=== PATIENT | female | born 1980 | race Caucasian/White ===

== ENCOUNTER 2016-10-10 19:06 | Emergency (ER) | payer MEDICAID ==
[~2016-10-10] VITALS: Ht 152.4 cm; Wt 85.0 kg
[~2016-10-10 19:06] MED LIST: APRESOLINE25 MG/TAB PO; APRISO0.375 GM PO; ATIVAN0.5 MG PO; BACTRIM DS1 TAB PO; BUDEPRION150 MG PO; BUDESONIDE1 MG/2 ML; BUPROPION150 MG PO; BUSPAR5 MG PO; CEPHALEXIN500 M1 PO; CIPROFLOXACN500 MG PO; CITALOPRAM20 MG PO; DOXYCYCL HYC100 MG PO; FLUCONAZOLE150 MG PO; HUMIRA PED40 MG/0.8 IJ; IBUPROFEN600 MG PO; LOMOTIL2.5 MG PO; LORTAB 10-325 M1 TAB PO; LORTAB 5/3255 MG PO; LORTAB 7.57.5 MG PO; LORTAB5 PO; METRONIDAZOL500 MG PO; NAPROSYN500 MG PO; NO HOME MEDS; ORTHO NOVUM PO; PENICILLN VK500 M1 OR; PENTASA250 MG PO; PNV PO; PREDNISONE10 MG PO; REMICADE INJ100 MG IV; ROBITUSSIN AC10 ML OR; SYNTHROID100 MCG PO; TORADOL PO; UCERIS9 MG PO; ULTRAM50 M1 PO; ZOFRAN ODT4 MG PO; ZOLOFT25 MG; [UNRECOGNIZED DRUG - OTHER]
[2016-10-10 20:00] LABS: HEMATOCRIT 34.8 % (37.0-47.0); HEMOGLOBIN 11.2 g/dl (12.0-16.0); IMMATURE GRANULOCYTES 0.4 % (0.0-1.0); MEAN CELL VOLUME 76.8 fL CALC (80.0-100.0); MEAN CORPUSCULAR HGB 24.7 pG CALC (26.0-32.0); MEAN CORPUSCULAR HGB CONC 32.2 g/L CALC (32.0-36.0); NEUT# 8.39 thou/uL (2.00-7.15); RED BLOOD COUNT 4.53 mill/uL (4.20-5.60); RED CELL DISTRI WIDTH 15.9 % (11.5-15.5); URINE BILIRUBIN - DIPSTICK NEGATIVE (NEGATIVE); URINE BLOOD DIPSTICK MODERATE (NEGATIVE); URINE CLARITY CLOUDY; URINE COLOR YELLOW; URINE GLUCOSE - DIPSTICK NEGATIVE (NEGATIVE); URINE KETONE NEGATIVE (NEGATIVE); URINE LEUK ESTERASE NEGATIVE (NEGATIVE); URINE NITRITE - DIPSTICK NEGATIVE (Negative); URINE PROTEIN - DIPSTICK 30 mg/dL (NEG-TRACE); URINE SPECIFIC GRAVITY >=1.030; URINE UROBILINOGEN - DIPSTICK 0.2 E.U./dL (0.2)
[2016-10-10 20:09] LABS: URINE BACTERIA FEW hpf; URINE CALCIUM OXALATE CRYSTALS MANY lpf; URINE SQUAMOUS EPITHELIAL CELL MODERATE EPI/hpf (0-FEW); URINE WBC 0-2 WBC/hpf (0-5)
[2016-10-10 20:19] LABS: BARBITURATES NEGATIVE (NEGATIVE); COCAINE NEGATIVE (NEGATIVE); METHADONE NEGATIVE (NEGATIVE); OXCYCODONE NEGATIVE (NEGATIVE); TETRAHYDROCANNABIONOL NEGATIVE (NEGATIVE); TRICYLIC ANTIDEPRESSANTS NEGATIVE (NEGATIVE)
[2016-10-10 20:28] LABS: ALBUMIN 3.8 g/dL (3.2-5.0); ALKALINE PHOSPHATASE 98 u/l (38-126); ANION GAP 15 (6-22 (CALC)); BILIRUBIN, TOTAL 0.4 mg/dL (0.0-1.4); BUN 8 mg/dL (7-17); BUN/CREATININE RATIO 11 (12-20 (CALC)); CALCIUM 8.9 mg/dL (8.4-10.2); CARBON DIOXIDE 26 mmol/l (22-30); CHLORIDE 103 mmol/l (95-108); CREATININE 0.7 mg/dL (0.5-1.0); GFR > 60 ML/MIN (>=60 (CALC)); GFR FOR AFR.AMER. > 60 ML/MIN (>=60 (CALC)); GLUCOSE 100 mg/dL (65-105); POTASSIUM 2.7 mmol/l (3.5-5.1); SGOT/AST 25 u/l (14-36); SGPT/ALT 23 u/l (9-52); SODIUM 140 mmol/l (137-146); TOTAL PROTEIN 8.3 g/dL (6.3-8.2)
[2016-10-10 20:38] LABS: MYOGLOBIN 29 ng/mL (0 - 62)
[2016-10-10] MEDS ORDERED: POTASSIUM CHLO20 ME1 PO (23:22)
[2016-10-10 23:41] VITALS: BP 110/60
== END 2016-10-10 23:37 | disposition home or self-care (01) | DRG 309 ==
LOC: ED 19:06
PROVIDERS: Emergency Medicine
DX: R00.2 Palpitations (principal); K50.90 Crohn's disease, unspecified, without complications; E87.6 Hypokalemia; R19.7 Diarrhea, unspecified; F17.210 Nicotine dependence, cigarettes, uncomplicated

== ENCOUNTER 2016-10-29 17:37 | Observation (INO) | payer OTHER ==
[~2016-10-29] VITALS: Ht 152.4 cm; Wt 83.0 kg
[~2016-10-29 17:37] MED LIST changes: +POTASSIUM CHLO20 ME1 PO
--- NOTE | 2016-10-29 18:15 | NUR ---
PATIENT RESTING AWAITING ANESTHESIA FOR POSSIIBLE CONSCINOUS SEDATION PAIN 4 ON 0-10 SCALE
[2016-10-29 18:21] LABS: HEMATOCRIT 37.2 % (37.0-47.0); HEMOGLOBIN 11.9 g/dl (12.0-16.0); IMMATURE GRANULOCYTES 0.4 % (0.0-1.0); MEAN CELL VOLUME 78.6 fL CALC (80.0-100.0); MEAN CORPUSCULAR HGB 25.2 pG CALC (26.0-32.0); NEUT# 8.18 thou/uL (2.00-7.15); RED BLOOD COUNT 4.73 mill/uL (4.20-5.60); RED CELL DISTRI WIDTH 16.4 % (11.5-15.5)
[2016-10-29 18:37] LABS: ALKALINE PHOSPHATASE 84 u/l (38-126); ANION GAP 15 (6-22 (CALC)); BILIRUBIN, TOTAL 0.5 mg/dL (0.0-1.4); BUN 10 mg/dL (7-17); BUN/CREATININE RATIO 14 (12-20 (CALC)); CALCIUM 9.6 mg/dL (8.4-10.2); CARBON DIOXIDE 22 mmol/l (22-30); CHLORIDE 105 mmol/l (95-108); CREATININE 0.7 mg/dL (0.5-1.0); GFR > 60 ML/MIN (>=60 (CALC)); GFR FOR AFR.AMER. > 60 ML/MIN (>=60 (CALC)); GLUCOSE 95 mg/dL (65-105); POTASSIUM 3.4 mmol/l (3.5-5.1); SGOT/AST 17 u/l (14-36); SGPT/ALT 23 u/l (9-52); SODIUM 139 mmol/l (137-146); TOTAL PROTEIN 8.4 g/dL (6.3-8.2)
--- NOTE | 2016-10-29 19:15 | NUR ---
PT. AGREED TO HAVE MD OPEN ACSCESS SO IT MAY DRAIN BETTER.
--- NOTE | 2016-10-29 19:58 | NUR ---
IN ROOM FOR INCISION AND DRAINAGE OF RIGHT BUTTOCK ABSCESS. PT. TOLERATED WELL. CULTURE OBTAINED, PACKING APPLIED.
--- NOTE | 2016-10-29 20:33 | NUR ---
Admission Note Report Given to: ANNETTE CASTRO Transported by: Wheelchair X Stretcher Transported with: X Nurse Transporter X Patent IV O2 Contact Worker
--- NOTE | 2016-10-29 20:35 | NUR ---
PT. TAKEN TO DE VIA STRETCHER.
[2016-10-29 20:40] VITALS: BP 132/72
--- NOTE | 2016-10-29 20:50 | NUR ---
PATIENT ARRIVED TO FLOOR ACCOMPANIED BY NURSE. PATIENT SETTLED TO BED AND ORIENTED TO ROOM AND CALL SYSTEM; DENIES PAIN OR DISCOMFORT AT THIS TIME. SALINE LOCK #18 GUAGE NOTED IN LAC AND FLUSHES WELL.
--- NOTE | 2016-10-30 | NUR ---
PATIENT RESTING IN BED WITH EYES CLOSED. PATIENT AWOKE SPONTANEOUSLY. DENIES PAIN. PATIENT IS IN NO APPARENT DISTRESS, IV FLUIDS OF NS INFUSING AT 125CC/H VIA PUMP WITHOUT DIFFICULTY.
[2016-10-30 03:50] VITALS: BP 109/69
--- NOTE | 2016-10-30 04:00 | NUR ---
PATIENT RESTING QUIETLY IN BED, NO ACUTE CHANGES NOTED IN PATIENT'S CONDITION.
--- NOTE | 2016-10-30 07:05 | NUR ---
BEDSIDE REPORT RECEIVED FROM GLORIA BRYATN. PT LYING ON LEFT SIDE IN BED. DENIES PAIN. REPORTING OF CONCERNS ENCOURAGED. PLAN OF CARE DISCUSSED. CALL LIGHT REVIEWED AND IN REACH. PT STATES UNDERSTANDING.
--- NOTE | 2016-10-30 07:55 | NUR ---
Vancomycin dosing Age: 36 years Weight: 83 kg Height: 152.4 cm Gender: Female SCR: 0.7 mg/dl Dosing weight: 60.5 kg IBW: 45.50 kg CRCL (ml/min): 81.3 Matthew (hr-1): 0.072 Half-life (hrs): 9.63 Vd (liters): 58.10 (factor: 0.7 L/kg) Vancomycin 1250 mg q12 hrs to produce a predicted peak of 34.6 mcg/ml and a predicted trough of 16.8 mcg/ml based on (Population-based pharmacokinetic analysis). Vancomycin trough to be taken on 10/31/16 at 2030, 30 minutes prior to dose.
[2016-10-30 08:00] VITALS: BP 100/51
--- NOTE | 2016-10-30 12:20 | NUR ---
DR. PARKS IN TO SEE PT. DISCHARGE DISCUSSED. PT STATES UNDERSTANDING.
--- NOTE | 2016-10-30 12:21 | NUR ---
Discharge instructions given. Patient verbalizes understanding of same. Discharged in stable condition via Ambulatory to Home with *Other. All belongings sent with pt.
--- NOTE | 2016-11-01 08:23 | NUR ---
ED CULTURE PHARMACY MEDICATION FOLLOW-UP Patient was seen in ED on 10/29/16 Cultures were reviewed from: Wound Patient was discharged with Rx for:N/A C&S report came back with Growth PLAN: Recommended: No Change Comment: RECURRENT PERINEAL ABCESS DRAINED IN ER. PT UNDER CARE OF DR PARKS.
== END 2016-10-30 12:21 | disposition home or self-care (01) | DRG 394 ==
LOC: ENPENDDIS → ED 17:37 → ED-I 19:08 → ED 19:58 → MS2 19:59
PROVIDERS: Emergency Medicine; ADMIT Surgery; ATTEND Surgery
PROC: 0H98XZZ Drainage of Buttock Skin, External Approach (ICD-10-PCS; principal; 2016-10-29)
DX: K61.0 Anal abscess (principal); K50.90 Crohn's disease, unspecified, without complications; F31.9 Bipolar disorder, unspecified; F41.9 Anxiety disorder, unspecified; F17.210 Nicotine dependence, cigarettes, uncomplicated
CPT/HCPCS: G0378; J3370

== ENCOUNTER 2016-12-13 21:50 | Emergency (ER) | payer OTHER ==
[~2016-12-13] VITALS: Ht 152.4 cm; Wt 86.3 kg
[2016-12-13] MEDS ORDERED: AMOXICILLIN500 MG PO (22:10)
[2016-12-13] MEDS ORDERED: LORTAB 10-325 M1 TAB PO (22:10)
[2016-12-13 22:30] VITALS: BP 138/73
== END 2016-12-13 22:30 | disposition home or self-care (01) | DRG 159 ==
LOC: ED 21:50
DX: K04.7 Periapical abscess without sinus (principal); F17.210 Nicotine dependence, cigarettes, uncomplicated; K08.89 Other specified disorders of teeth and supporting structures; R51 Headache

== ENCOUNTER 2017-01-11 13:11 | Emergency (ER) | payer OTHER ==
[~2017-01-11] VITALS: Ht 152.4 cm; Wt 75.0 kg
[~2017-01-11 13:11] MED LIST changes: +AMOXICILLIN500 MG PO
[2017-01-11] MEDS ORDERED: TRAMADOL HYDROC50 MG PO (13:56)
[2017-01-11] MEDS ORDERED: KEFLEX500 MG PO (13:56)
[2017-01-11 14:05] VITALS: BP 120/76
== END 2017-01-11 14:05 | disposition home or self-care (01) | DRG 605 ==
LOC: ED 13:11
PROC: 0HQFXZZ Repair Right Hand Skin, External Approach (ICD-10-PCS; principal; 2017-01-11)
DX: S61.411A Laceration without foreign body of right hand, initial encounter (principal); K50.90 Crohn's disease, unspecified, without complications; F41.9 Anxiety disorder, unspecified; F31.9 Bipolar disorder, unspecified; F17.210 Nicotine dependence, cigarettes, uncomplicated; W26.8XXA Contact with other sharp object(s), not elsewhere classified, initial encounter; Y93.89 Activity, other specified; Y92.009 Unspecified place in unspecified non-institutional (private) residence as the place of occurrence of the external cause

== ENCOUNTER 2017-01-18 10:40 | Emergency (ER) | payer SELFPAY ==
[~2017-01-18] VITALS: Ht 152.4 cm; Wt 85.0 kg
[~2017-01-18 10:40] MED LIST changes: +KEFLEX500 MG PO; -REMICADE INJ100 MG IV; +TRAMADOL HYDROC50 MG PO
[2017-01-18] MEDS ORDERED: REMICADE INJ100 MG IV (11:19)
[2017-01-18 11:40] VITALS: BP 121/74
== END 2017-01-18 11:40 | disposition home or self-care (01) | DRG 949 ==
LOC: ED 10:40
DX: S61.401D Unspecified open wound of right hand, subsequent encounter (principal); K50.90 Crohn's disease, unspecified, without complications; F17.210 Nicotine dependence, cigarettes, uncomplicated; X58.XXXD Exposure to other specified factors, subsequent encounter

== ENCOUNTER 2017-01-22 07:05 | Emergency (ER) | payer SELFPAY ==
[~2017-01-22] VITALS: Ht 152.4 cm; Wt 90.0 kg
[~2017-01-22 07:05] MED LIST changes: +REMICADE INJ100 MG IV
[2017-01-22 07:34] VITALS: BP 130/89
== END 2017-01-22 07:35 | disposition home or self-care (01) | DRG 921 ==
LOC: ED 07:05
DX: T81.33XA Disruption of traumatic injury wound repair, initial encounter (principal); F17.210 Nicotine dependence, cigarettes, uncomplicated

== ENCOUNTER 2017-01-27 19:15 | Emergency (ER) | payer SELFPAY ==
[~2017-01-27] VITALS: Ht 152.4 cm; Wt 86.3 kg
[2017-01-27 20:19] LABS: HEMOGLOBIN 11.1 g/dl (12.0-16.0); IMMATURE GRANULOCYTES 0.4 % (0.0-1.0); MEAN CELL VOLUME 83.7 fL CALC (80.0-100.0); MEAN CORPUSCULAR HGB 25.8 pG CALC (26.0-32.0); MEAN CORPUSCULAR HGB CONC 30.8 g/L CALC (32.0-36.0); NEUT# 5.57 thou/uL (2.00-7.15); RED BLOOD COUNT 4.3 mill/uL (4.20-5.60); RED CELL DISTRI WIDTH 18.9 % (11.5-15.5)
[2017-01-27 20:30] LABS: ALBUMIN 3.4 g/dL (3.2-5.0); ALKALINE PHOSPHATASE 55 u/l (38-126); ANION GAP 11 (6-22 (CALC)); BILIRUBIN, TOTAL 0.9 mg/dL (0.0-1.4); BUN 9 mg/dL (7-17); BUN/CREATININE RATIO 13 (12-20 (CALC)); CALCIUM 8.8 mg/dL (8.4-10.2); CARBON DIOXIDE 23 mmol/l (22-30); CHLORIDE 110 mmol/l (95-108); CREATININE 0.7 mg/dL (0.5-1.0); GFR > 60 ML/MIN (>=60 (CALC)); GFR FOR AFR.AMER. > 60 ML/MIN (>=60 (CALC)); GLUCOSE 91 mg/dL (65-105); POTASSIUM 4.2 mmol/l (3.5-5.1); SGOT/AST 20 u/l (14-36); SGPT/ALT 27 u/l (9-52); SODIUM 139 mmol/l (137-146); TOTAL PROTEIN 6.6 g/dL (6.3-8.2)
[2017-01-27 22:19] LABS: C. DIFFICILE TOXIN A&B NEGATIVE (NEGATIVE)
[2017-01-27 23:10] VITALS: BP 144/71
== END 2017-01-27 23:15 | disposition home or self-care (01) | DRG 386 ==
LOC: ED 19:15
PROVIDERS: Emergency Medicine
DX: K51.90 Ulcerative colitis, unspecified, without complications (principal); K62.5 Hemorrhage of anus and rectum; R50.9 Fever, unspecified; R10.32 Left lower quadrant pain; R11.2 Nausea with vomiting, unspecified
CPT/HCPCS: Q9967

== ENCOUNTER 2017-06-02 18:28 | Emergency (ER) | payer OTHER ==
[~2017-06-02] VITALS: Ht 152.4 cm; Wt 80.0 kg
[2017-06-02 19:19] LABS: IMMATURE GRANULOCYTES 0.3 % (0.0-1.0); MEAN CELL VOLUME 83.2 fL CALC (80.0-100.0); MEAN CORPUSCULAR HGB 27.1 pG CALC (26.0-32.0); MEAN CORPUSCULAR HGB CONC 32.6 g/L CALC (32.0-36.0); NEUT# 7.29 thou/uL (2.00-7.15); RED BLOOD COUNT 5.17 mill/uL (4.20-5.60); RED CELL DISTRI WIDTH 15.1 % (11.5-15.5)
[2017-06-02 19:32] LABS: ALKALINE PHOSPHATASE 101 u/l (38-126); ANION GAP 15 (6-22 (CALC)); BILIRUBIN, TOTAL 1.1 mg/dL (0.0-1.4); BUN 8 mg/dL (7-17); BUN/CREATININE RATIO 10 (12-20 (CALC)); CALCIUM 9.3 mg/dL (8.4-10.2); CARBON DIOXIDE 21 mmol/l (22-30); CHLORIDE 106 mmol/l (95-108); CREATININE 0.8 mg/dL (0.5-1.0); GFR > 60 ML/MIN (>=60 (CALC)); GFR FOR AFR.AMER. > 60 ML/MIN (>=60 (CALC)); GLUCOSE 96 mg/dL (65-105); LIPASE 20 u/l (23-300); POTASSIUM 3.4 mmol/l (3.5-5.1); SGOT/AST 21 u/l (14-36); SGPT/ALT 20 u/l (9-52); SODIUM 139 mmol/l (137-146); TOTAL PROTEIN 8.7 g/dL (6.3-8.2)
[2017-06-02] MEDS ORDERED: MEDDOSEPAK PO (20:14)
[2017-06-02 20:16] VITALS: BP 135/70
== END 2017-06-02 20:32 | disposition home or self-care (01) | DRG 392 ==
LOC: ED 18:28
PROVIDERS: Emergency Medicine
DX: R10.11 Right upper quadrant pain (principal); F17.210 Nicotine dependence, cigarettes, uncomplicated; R11.2 Nausea with vomiting, unspecified; R19.7 Diarrhea, unspecified

== ENCOUNTER 2017-10-20 18:22 | Inpatient (IN) | payer OTHER ==
[~2017-10-20] VITALS: Ht 152.4 cm; Wt 72.2 kg
[~2017-10-20 18:22] MED LIST changes: +MEDDOSEPAK PO
--- NOTE | 2017-10-20 18:30 | NUR ---
PT AMBULATED TO ER ROOM 8 WITH STEADY GAIT. TO BATHROOM FOR UA SAMPLE. CHANGED INTO GOWN.
[2017-10-20 19:26] LABS: URINE BILIRUBIN - DIPSTICK NEGATIVE (NEGATIVE); URINE BLOOD DIPSTICK NEGATIVE (NEGATIVE); URINE COLOR YELLOW; URINE GLUCOSE - DIPSTICK NEGATIVE (NEGATIVE); URINE KETONE NEGATIVE (NEGATIVE); URINE LEUK ESTERASE NEGATIVE (NEGATIVE); URINE NITRITE - DIPSTICK NEGATIVE (Negative); URINE PROTEIN - DIPSTICK NEGATIVE (NEG-TRACE); URINE SPECIFIC GRAVITY 1.015; URINE UROBILINOGEN - DIPSTICK 0.2 E.U./dL (0.2)
[2017-10-20 19:28] LABS: HEMATOCRIT 38.6 % (37.0-47.0); HEMOGLOBIN 13.1 g/dl (12.0-16.0); IMMATURE GRANULOCYTES 0.5 % (0.0-1.0); MEAN CELL VOLUME 87.3 fL CALC (80.0-100.0); MEAN CORPUSCULAR HGB 29.6 pG CALC (26.0-32.0); MEAN CORPUSCULAR HGB CONC 33.9 g/L CALC (32.0-36.0); NEUT# 12.06 thou/uL (2.00-7.15); RED BLOOD COUNT 4.42 mill/uL (4.20-5.60); RED CELL DISTRI WIDTH 14.6 % (11.5-15.5)
[2017-10-20 19:32] LABS: URINE CLARITY CLEAR
[2017-10-20 19:39] LABS: INFLUENZA A NONE DETECTED (NONE DETECT); INFLUENZA B NONE DETECTED (NONE DETECT)
[2017-10-20 19:39] LABS: ALKALINE PHOSPHATASE 135 u/l (38-126); ANION GAP 12 (6-22 (CALC)); BILIRUBIN, TOTAL 0.6 mg/dL (0.0-1.4); BUN 6 mg/dL (7-17); BUN/CREATININE RATIO 6 (12-20 (CALC)); CARBON DIOXIDE 25 mmol/l (22-30); CHLORIDE 101 mmol/l (95-108); GFR > 60 ML/MIN (>=60 (CALC)); GFR FOR AFR.AMER. > 60 ML/MIN (>=60 (CALC)); POTASSIUM 2.8 mmol/l (3.5-5.1); SGOT/AST 18 u/l (14-36); SGPT/ALT 32 u/l (9-52); SODIUM 135 mmol/l (137-146)
[2017-10-20 19:40] LABS: ALBUMIN 2.1 g/dL (3.2-5.0); TOTAL PROTEIN 5.8 g/dL (6.3-8.2)
--- NOTE | 2017-10-20 21:13 | NUR ---
RESTING QUIETLY AWAITING DISPOSITION.
--- NOTE | 2017-10-20 21:40 | NUR ---
Admission Note Report Given to: GLORIA MERIDA Transported by: Wheelchair X Stretcher Transported with: X Nurse Transporter X Patent IV O2 X Low Vision Therapist
--- NOTE | 2017-10-20 21:55 | NUR ---
PT TO FLOOR VIA STRETCHER ACOMPANIED BY ER STAFF. PT AMBULATED FROM STRETCHER TO BED WITHOUT DIFFICULTY. PT IS ALERT AND ORIENTED X3. PERRLA. RESP ARE EVEN AND UNLABORED. NO DISTRESS NOTED. LUNGS ARE CLEAR. HR REGULAR. PULSES PALPABLE THROUGHOUT. NO EDEMA NOTED. BS ACTIVE. #20 LAC WITH NS W/ 40K INFUSING AT 125CC/HR. NO REDNESS OR EDEMA NOTED. CALL LIGHT IN REACH. WILL CONTINUE TO MONITOR.
--- NOTE | 2017-10-20 22:00 | NUR ---
PT COMPLAINS OF 8/[address] DELAROSA NOTIFIED. ORDERS RECEIVED.
--- NOTE | 2017-10-20 22:30 | NUR ---
PT WITH COMPLAINTS OF CHILLS. PT HAD A TEMP IN ER OF 101.6. TEMP RECHECKED 100.0 ORDER OBTAINED FOR TYLENOL. WILL MEDICATE PRN
--- NOTE | 2017-10-20 23:51 | NUR ---
PT RESTING IN BED. RESP ARE EVEN AND UNLABORED. CALL LIGHT IN REACH WILL CONTINUE TO MONITOR
--- NOTE | 2017-10-21 04:11 | NUR ---
PT RESTING IN BED. RESP ARE EVEN AND UNLABORED. NO DISTRESS NOTED. CALL LIGHT IN REACH. WILL CONTINUE TO MONITOR
[2017-10-21 04:29] VITALS: BP 82/51
[2017-10-21 06:13] LABS: ANION GAP 10 (6-22 (CALC)); BUN 6 mg/dL (7-17); BUN/CREATININE RATIO 6 (12-20 (CALC)); CARBON DIOXIDE 22 mmol/l (22-30); CHLORIDE 105 mmol/l (95-108); CREATININE 0.9 mg/dL (0.5-1.0); GFR > 60 ML/MIN (>=60 (CALC)); GFR FOR AFR.AMER. > 60 ML/MIN (>=60 (CALC)); MAGNESIUM 1.6 mg/dL (1.6-2.3); POTASSIUM 3.1 mmol/l (3.5-5.1); SODIUM 135 mmol/l (137-146)
[2017-10-21 06:22] LABS: HEMATOCRIT 33.9 % (37.0-47.0); HEMOGLOBIN 11.4 g/dl (12.0-16.0); MEAN CELL VOLUME 88.7 fL CALC (80.0-100.0); MEAN CORPUSCULAR HGB 29.8 pG CALC (26.0-32.0); MEAN CORPUSCULAR HGB CONC 33.6 g/L CALC (32.0-36.0); RED BLOOD COUNT 3.82 mill/uL (4.20-5.60); RED CELL DISTRI WIDTH 14.6 % (11.5-15.5)
--- NOTE | 2017-10-21 07:13 | NUR ---
SHIFT BERNICE REPORT FROM [facility], PT AWAKE ALERT AND ORIENTED, DENIES PAIN/DISCOMFORT, REQUESTING ORAL INTAKE AT THIS TIME AND GIVEN DRINK. NO C/O, CALL CASTELLANOS IN REACH.
[2017-10-21 08:10] VITALS: BP 92/63
[2017-10-21 11:00] VITALS: BP 81/53
--- NOTE | 2017-10-21 12:00 | NUR ---
RESTING IN BED, DENIES PAIN, ALL NEEDS ADDRESSED, DR DELAROSA HERE ROUNDING, CALL CASTELLANOS IN REACH.
--- NOTE | 2017-10-21 12:06 | NUR ---
DR DELAROSA HERE ROUNDING WITH PT. PT WAS UNABLE TO TOLERATE K TABLETS, ORDAINED MINISTER NOTIFIED AND ORDERED ME IN POWDER FORM, PT TOLERATED WELL.
--- NOTE | 2017-10-21 15:44 | NUR ---
RESTING ON RECLINER AT THIS TIME, ALL NEEDS MET/ADDRESSED, CALL CASTELLANOS IN REACH.
[2017-10-21 16:22] VITALS: BP 91/58
--- NOTE | 2017-10-21 18:07 | NUR ---
PT C/O SHE CANNOT TOLERATE ANY MILK PRODUCTS AT THIS TIME, REQUEST TO HAVE SOME SOLID FOODS, SALES PERFORMANCE ANALYST NOTIFIED AND ORDERED SOFT DIET, PT IS APPRECIATIVE, WILL CONTINUE TO MONITOR AND ASSESS TOLERANCE OF MEALS.
[2017-10-21 18:26] LABS: C. DIFFICILE TOXIN A&B NEGATIVE (NEGATIVE)
[2017-10-21 19:05] VITALS: BP 90/64
--- NOTE | 2017-10-21 19:39 | NUR ---
BEDSIDE REPORT RECEIVED FROM GLORIA AYALA. PT RESTING IN BED SUPINE WATCHING TV. DENIES PAIN CURRENTLY. RESPIRATIONS EVEN AND UNLABORED ON ROOM AIR. PLAN OF CARE DISCUSSED. PT ENCOURAGED TO VERBALIZE CONCERNS. STATES UNDERSTANDING. SAFETY MEASURES IN PLACE. CALL LIGHT WITHIN REACH.
--- NOTE | 2017-10-22 00:06 | NUR ---
PT ASLEEP AT THIS TIME WITH NO SIGNS OF DISTRESS NOTED. RESPIRATIONS EVEN AND UNLABORED ON ROOM AIR. INDPENDENT IN ROOM; USES CALL LIGHT PRN FOR ASSISTANCE. REQUESTED SOME CRACKERS AND TOLERATED THEM WELL; NO COMPLAINTS OF NAUSEA. IV FLUIDS INFUSING WITHOUT DIFFICULTY; ABT ADMINISTERED WITH NO ADVERSE REACTIONS NOTED. IV SITE APPEARS HEALTHY. NO FURTHER REQUESTS OR COMPLAINTS. SAFETY MEASURES IN PLACE. CALL LIGHT WTIHIN REACH.
[2017-10-22 00:17] VITALS: BP 83/55
--- NOTE | 2017-10-22 04:00 | NUR ---
PT AWAKE FOR VS AND BATHROOM. DENIES PAIN AT THIS TIME. RESPIRATIONS EVEN AND UNLABORED. ASKS HOW LONG SHE HAS TO BE ON THE FLUIDS; SHE DID TOLERATE DINNER AND SNACK LAST NIGHT. NO ACUTE CHANGES IN CONDITION THROUGHOUT THE NIGHT. SAFETY MEASURES IN PLACE. CALL LIGHT WITHIN REACH.
[2017-10-22 04:02] VITALS: BP 92/58
[2017-10-22 05:28] LABS: HEMATOCRIT 30.5 % (37.0-47.0); HEMOGLOBIN 10.1 g/dl (12.0-16.0); IMMATURE GRANULOCYTES 0.9 % (0.0-1.0); MEAN CELL VOLUME 89.2 fL CALC (80.0-100.0); MEAN CORPUSCULAR HGB 29.5 pG CALC (26.0-32.0); MEAN CORPUSCULAR HGB CONC 33.1 g/L CALC (32.0-36.0); RED BLOOD COUNT 3.42 mill/uL (4.20-5.60); RED CELL DISTRI WIDTH 14.9 % (11.5-15.5)
[2017-10-22 06:00] LABS: ANION GAP 9 (6-22 (CALC)); BUN 4 mg/dL (7-17); BUN/CREATININE RATIO 5 (12-20 (CALC)); CARBON DIOXIDE 24 mmol/l (22-30); CHLORIDE 107 mmol/l (95-108); CREATININE 0.8 mg/dL (0.5-1.0); GFR > 60 ML/MIN (>=60 (CALC)); GFR FOR AFR.AMER. > 60 ML/MIN (>=60 (CALC)); MAGNESIUM 1.7 mg/dL (1.6-2.3); POTASSIUM 3.1 mmol/l (3.5-5.1); SODIUM 137 mmol/l (137-146)
--- NOTE | 2017-10-22 07:31 | NUR ---
SHIFT CHANGE REPORT FROM ANU, PT RESTING IN BED WITH EYES CLOSED, RESPONDS TO VERBAL STIMULI, NO NEW COMLAINS, IVF INFUSING, TELE MONITOR IN PLACE, CALL CASTELLANOS IN REACH.
[2017-10-22 08:18] VITALS: BP 90/60
[2017-10-22 11:05] VITALS: BP 90/56
--- NOTE | 2017-10-22 11:52 | NUR ---
IV SITE LEAKING AND CATHETER REMOVED, PT REQUESTING NOT TO HAVE AOTHER ONE STARTED, NO MD AVAILABLE AT THIS TIME TO BE CONTACTED. JESSICA (WARRANTY CLERK) CALLED DR BERMAN WHO TOLD HER DR PABON IS TUFT MACHINE OPERATOR TODAY. I TRIED TO GET IN TOUCH WITH DR PABON BUT TO NO AVAIL.WILL CONTINUE TO INVESTIGATE.
--- NOTE | 2017-10-22 14:52 | NUR ---
PT INFORMED OF NEW ORDERS, BECAME TEARYEYED STATING SHE WANTS TO GO HOME, ADVISED WILL AWAIT MD'S ORDERS
[2017-10-22 15:17] VITALS: BP 91/65
[2017-10-22 15:59] LABS: HEMATOCRIT 34.9 % (37.0-47.0); HEMOGLOBIN 11.3 g/dl (12.0-16.0); IMMATURE GRANULOCYTES 0.8 % (0.0-1.0); MEAN CELL VOLUME 89.7 fL CALC (80.0-100.0); MEAN CORPUSCULAR HGB CONC 32.4 g/L CALC (32.0-36.0); NEUT# 12.02 thou/uL (2.00-7.15); RED BLOOD COUNT 3.89 mill/uL (4.20-5.60); RED CELL DISTRI WIDTH 15.1 % (11.5-15.5)
[2017-10-22 16:23] LABS: ALKALINE PHOSPHATASE 126 u/l (38-126); ANION GAP 12 (6-22 (CALC)); BILIRUBIN, TOTAL 0.2 mg/dL (0.0-1.4); BUN 4 mg/dL (7-17); BUN/CREATININE RATIO 5 (12-20 (CALC)); CARBON DIOXIDE 23 mmol/l (22-30); CHLORIDE 105 mmol/l (95-108); CREATININE 0.8 mg/dL (0.5-1.0); GFR > 60 ML/MIN (>=60 (CALC)); GFR FOR AFR.AMER. > 60 ML/MIN (>=60 (CALC)); POTASSIUM 3.7 mmol/l (3.5-5.1); SGOT/AST 17 u/l (14-36); SGPT/ALT 32 u/l (9-52); SODIUM 137 mmol/l (137-146); TOTAL PROTEIN 5.5 g/dL (6.3-8.2)
[2017-10-22] MEDS ORDERED: METRONIDAZOL500 MG PO (17:37)
[2017-10-22] MEDS ORDERED: CIPROFLOXACN500 MG PO (17:37)
[2017-10-22] MEDS ORDERED: ENTOCORT EC3 MG PO (17:37)
--- NOTE | 2017-10-22 19:00 | NUR ---
Discharge instructions given. Patient verbalizes understanding of same. Discharged in stable condition via Ambulatory to Home with *Other. All belongings sent with pt.
== END 2017-10-22 19:00 | disposition home or self-care (01) | DRG 387 ==
LOC: ED 18:22 → ED-I 21:00 → ED 21:31 → MS2 21:32
PROVIDERS: Emergency Medicine; Hospitalist; Nurse Practitioner Family; ADMIT Internal Medicine; ATTEND Internal Medicine
DX: K51.90 Ulcerative colitis, unspecified, without complications (principal); E87.6 Hypokalemia; F17.210 Nicotine dependence, cigarettes, uncomplicated; F41.9 Anxiety disorder, unspecified; F31.9 Bipolar disorder, unspecified
CPT/HCPCS: Q9967

== ENCOUNTER 2017-10-27 11:53 | Emergency (ER) | payer OTHER ==
[~2017-10-27] VITALS: Ht 152.4 cm; Wt 70.0 kg
[~2017-10-27 11:53] MED LIST changes: +ENTOCORT EC3 MG PO
[2017-10-27 13:01] LABS: HEMATOCRIT 34.8 % (37.0-47.0); HEMOGLOBIN 11.8 g/dl (12.0-16.0); MEAN CELL VOLUME 87.9 fL CALC (80.0-100.0); MEAN CORPUSCULAR HGB 29.8 pG CALC (26.0-32.0); MEAN CORPUSCULAR HGB CONC 33.9 g/L CALC (32.0-36.0); NEUT# 12.19 thou/uL (2.00-7.15); RED BLOOD COUNT 3.96 mill/uL (4.20-5.60); RED CELL DISTRI WIDTH 15.5 % (11.5-15.5)
[2017-10-27 13:16] LABS: ALBUMIN 2.1 g/dL (3.2-5.0); ALKALINE PHOSPHATASE 99 u/l (38-126); AMYLASE < 30 u/l (30-110); ANION GAP 12 (6-22 (CALC)); BILIRUBIN, TOTAL 0.4 mg/dL (0.0-1.4); BUN 2 mg/dL (7-17); BUN/CREATININE RATIO 3 (12-20 (CALC)); CARBON DIOXIDE 27 mmol/l (22-30); CHLORIDE 105 mmol/l (95-108); CREATININE 0.9 mg/dL (0.5-1.0); GFR > 60 ML/MIN (>=60 (CALC)); GFR FOR AFR.AMER. > 60 ML/MIN (>=60 (CALC)); LIPASE 33 u/l (23-300); SGOT/AST 10 u/l (14-36); SGPT/ALT 31 u/l (9-52); SODIUM 141 mmol/l (137-146); TOTAL PROTEIN 5.5 g/dL (6.3-8.2)
[2017-10-27 13:25] LABS: POTASSIUM 2.5 mmol/l (3.5-5.1)
[2017-10-27 15:24] LABS: URINE BILIRUBIN - DIPSTICK NEGATIVE (NEGATIVE); URINE BLOOD DIPSTICK NEGATIVE (NEGATIVE); URINE COLOR YELLOW; URINE GLUCOSE - DIPSTICK NEGATIVE (NEGATIVE); URINE KETONE NEGATIVE (NEGATIVE); URINE LEUK ESTERASE NEGATIVE (NEGATIVE); URINE NITRITE - DIPSTICK NEGATIVE (Negative); URINE PH 6.5 (4.5-8.0); URINE PROTEIN - DIPSTICK NEGATIVE (NEG-TRACE); URINE SPECIFIC GRAVITY 1.025; URINE UROBILINOGEN - DIPSTICK 0.2 E.U./dL (0.2)
[2017-10-27 15:25] LABS: URINE CLARITY CLEAR
[2017-10-27] MEDS ORDERED: LOMOTIL2.5 MG PO (17:26)
[2017-10-27] MEDS ORDERED: POTASSIUM CHLO20 ME1 PO (17:26)
[2017-10-27 17:41] VITALS: BP 97/55
== END 2017-10-27 17:41 | disposition home or self-care (01) | DRG 387 ==
LOC: ED 11:53 → ED-I 13:46 → ED 17:41
PROVIDERS: Emergency Medicine
DX: K50.90 Crohn's disease, unspecified, without complications (principal); E87.6 Hypokalemia; F17.210 Nicotine dependence, cigarettes, uncomplicated
CPT/HCPCS: Q9967

== ENCOUNTER 2017-11-12 22:30 | Emergency (ER) | payer OTHER ==
[~2017-11-12] VITALS: Ht 152.4 cm; Wt 69.2 kg
[2017-11-12 23:41] LABS: HEMATOCRIT 36.8 % (37.0-47.0); HEMOGLOBIN 12.5 g/dl (12.0-16.0); IMMATURE GRANULOCYTES 0.4 % (0.0-1.0); MEAN CELL VOLUME 88.5 fL CALC (80.0-100.0); NEUT# 6.13 thou/uL (2.00-7.15); RED BLOOD COUNT 4.16 mill/uL (4.20-5.60); RED CELL DISTRI WIDTH 15.6 % (11.5-15.5)
[2017-11-12 23:42] LABS: URINE BILIRUBIN - DIPSTICK NEGATIVE (NEGATIVE); URINE BLOOD DIPSTICK NEGATIVE (NEGATIVE); URINE COLOR YELLOW; URINE GLUCOSE - DIPSTICK NEGATIVE (NEGATIVE); URINE KETONE NEGATIVE (NEGATIVE); URINE LEUK ESTERASE NEGATIVE (NEGATIVE); URINE NITRITE - DIPSTICK NEGATIVE (Negative); URINE PH 6.5 (4.5-8.0); URINE PROTEIN - DIPSTICK 30 mg/dL (NEG-TRACE); URINE UROBILINOGEN - DIPSTICK 0.2 E.U./dL (0.2)
[2017-11-12 23:45] LABS: URINE CLARITY TURBID
[2017-11-12 23:48] LABS: URINE BACTERIA FEW hpf; URINE HYALINE CAST FEW lpf (NONE-RARE); URINE MUCUS MANY hpf (NONE-FEW); URINE RBC 0-2 RBC/hpf (0-5); URINE SQUAMOUS EPITHELIAL CELL MANY EPI/hpf (0-FEW); URINE WBC 0-2 WBC/hpf (0-5)
[2017-11-13 00:20] LABS: ALBUMIN 2.3 g/dL (3.2-5.0); ALKALINE PHOSPHATASE 106 u/l (38-126); AMYLASE < 30 u/l (30-110); BILIRUBIN, TOTAL 0.5 mg/dL (0.0-1.4); BUN 3 mg/dL (7-17); BUN/CREATININE RATIO 4 (12-20 (CALC)); CARBON DIOXIDE 26 mmol/l (22-30); CHLORIDE 98 mmol/l (95-108); CREATININE 0.9 mg/dL (0.5-1.0); GFR > 60 ML/MIN (>=60 (CALC)); GFR FOR AFR.AMER. > 60 ML/MIN (>=60 (CALC)); LIPASE 14 u/l (23-300); POTASSIUM 2.5 mmol/l (3.5-5.1); SGPT/ALT 30 u/l (9-52); TOTAL PROTEIN 6.1 g/dL (6.3-8.2)
[2017-11-13 00:21] LABS: ANION GAP 12 (6-22 (CALC)); SGOT/AST 19 u/l (14-36); SODIUM 133 mmol/l (137-146)
[2017-11-13 06:22] LABS: BUN 3 mg/dL (7-17); BUN/CREATININE RATIO 3 (12-20 (CALC)); CARBON DIOXIDE 24 mmol/l (22-30); CHLORIDE 107 mmol/l (95-108); CREATININE 0.9 mg/dL (0.5-1.0); GFR > 60 ML/MIN (>=60 (CALC)); GFR FOR AFR.AMER. > 60 ML/MIN (>=60 (CALC)); SODIUM 138 mmol/l (137-146)
[2017-11-13 06:23] LABS: ANION GAP 10 (6-22 (CALC)); POTASSIUM 3.4 mmol/l (3.5-5.1)
[2017-11-13] MEDS ORDERED: ZOFRAN ODT4 MG PO (06:31)
[2017-11-13] MEDS ORDERED: K-TAB20 MEQ PO (06:31)
[2017-11-13] MEDS ORDERED: LOMOTIL2.5 MG PO (06:31)
[2017-11-13] MEDS ORDERED: CIPROFLOXACN500 MG PO (06:36)
[2017-11-13] MEDS ORDERED: METRONIDAZOL500 MG PO (06:36)
[2017-11-13 06:58] VITALS: BP 98/53
== END 2017-11-13 07:02 | disposition home or self-care (01) | DRG 387 ==
LOC: ED 22:30
PROVIDERS: Emergency Medicine
DX: K50.90 Crohn's disease, unspecified, without complications (principal); E87.6 Hypokalemia; F17.210 Nicotine dependence, cigarettes, uncomplicated; R11.2 Nausea with vomiting, unspecified; R05 Cough; R19.7 Diarrhea, unspecified
CPT/HCPCS: Q9967

== ENCOUNTER 2017-12-05 20:35 | Inpatient (IN) | payer OTHER ==
[~2017-12-05] VITALS: Ht 152.4 cm; Wt 64.0 kg
[~2017-12-05 20:35] MED LIST changes: +K-TAB20 MEQ PO
[2017-12-05 21:23] LABS: HEMATOCRIT 38.1 % (37.0-47.0); HEMOGLOBIN 13.2 g/dl (12.0-16.0); IMMATURE GRANULOCYTES 0.6 % (0.0-1.0); MEAN CELL VOLUME 89.4 fL CALC (80.0-100.0); MEAN CORPUSCULAR HGB CONC 34.6 g/L CALC (32.0-36.0); NEUT# 10.85 thou/uL (2.00-7.15); RED BLOOD COUNT 4.26 mill/uL (4.20-5.60); RED CELL DISTRI WIDTH 16.7 % (11.5-15.5)
[2017-12-05 21:24] LABS: URINE BILIRUBIN - DIPSTICK NEGATIVE (NEGATIVE); URINE BLOOD DIPSTICK NEGATIVE (NEGATIVE); URINE COLOR YELLOW; URINE GLUCOSE - DIPSTICK NEGATIVE (NEGATIVE); URINE KETONE NEGATIVE (NEGATIVE); URINE LEUK ESTERASE NEGATIVE (NEGATIVE); URINE NITRITE - DIPSTICK NEGATIVE (Negative); URINE PH 6.5 (4.5-8.0); URINE PROTEIN - DIPSTICK TRACE mg/dL (NEG-TRACE); URINE SPECIFIC GRAVITY <=1.005; URINE UROBILINOGEN - DIPSTICK 0.2 E.U./dL (0.2)
[2017-12-05 21:26] LABS: URINE CLARITY CLEAR
[2017-12-05 23:57] LABS: ALKALINE PHOSPHATASE 122 u/l (38-126); AMYLASE < 30 u/l (30-110); BILIRUBIN, TOTAL 0.5 mg/dL (0.0-1.4); BUN 5 mg/dL (7-17); BUN/CREATININE RATIO 6 (12-20 (CALC)); CARBON DIOXIDE 22 mmol/l (22-30); CHLORIDE 103 mmol/l (95-108); CREATININE 0.9 mg/dL (0.5-1.0); GFR > 60 ML/MIN (>=60 (CALC)); GFR FOR AFR.AMER. > 60 ML/MIN (>=60 (CALC)); LIPASE < 10 u/l (23-300); SGOT/AST 14 u/l (14-36); SGPT/ALT 30 u/l (9-52); SODIUM 135 mmol/l (137-146)
[2017-12-05 23:58] LABS: ALBUMIN 1.9 g/dL (3.2-5.0); ANION GAP 12 (6-22 (CALC)); POTASSIUM 2.1 mmol/l (3.5-5.1); TOTAL PROTEIN 5.2 g/dL (6.3-8.2)
[2017-12-06] VITALS (13 sets, daily range): BP systolic 68–112; BP diastolic 43–73
[2017-12-06 07:22] LABS: BUN 5 mg/dL (7-17); BUN/CREATININE RATIO 6 (12-20 (CALC)); CARBON DIOXIDE 23 mmol/l (22-30); CHLORIDE 111 mmol/l (95-108); CREATININE 0.9 mg/dL (0.5-1.0); GFR > 60 ML/MIN (>=60 (CALC)); GFR FOR AFR.AMER. > 60 ML/MIN (>=60 (CALC)); SODIUM 139 mmol/l (137-146)
[2017-12-06 07:23] LABS: ANION GAP 7 (6-22 (CALC)); POTASSIUM 2.3 mmol/l (3.5-5.1)
[2017-12-06 07:25] LABS: MEAN CELL VOLUME 89.4 fL CALC (80.0-100.0); MEAN CORPUSCULAR HGB 31.1 pG CALC (26.0-32.0); MEAN CORPUSCULAR HGB CONC 34.8 g/L CALC (32.0-36.0); RED BLOOD COUNT 3.41 mill/uL (4.20-5.60); RED CELL DISTRI WIDTH 16.4 % (11.5-15.5)
[2017-12-06 07:32] LABS: HEMATOCRIT 30.5 % (37.0-47.0); HEMOGLOBIN 10.6 g/dl (12.0-16.0)
[2017-12-06 14:41] LABS: BUN 4 mg/dL (7-17); BUN/CREATININE RATIO 5 (12-20 (CALC)); CARBON DIOXIDE 21 mmol/l (22-30); CHLORIDE 108 mmol/l (95-108); CREATININE 0.8 mg/dL (0.5-1.0); GFR > 60 ML/MIN (>=60 (CALC)); GFR FOR AFR.AMER. > 60 ML/MIN (>=60 (CALC)); SODIUM 138 mmol/l (137-146)
[2017-12-06 14:50] LABS: ANION GAP 12 (6-22 (CALC))
[2017-12-07] VITALS (11 sets, daily range): BP systolic 83–114; BP diastolic 55–76
[2017-12-07 05:30] LABS: HEMATOCRIT 29.8 % (37.0-47.0); MEAN CELL VOLUME 92.5 fL CALC (80.0-100.0); MEAN CORPUSCULAR HGB 31.1 pG CALC (26.0-32.0); MEAN CORPUSCULAR HGB CONC 33.6 g/L CALC (32.0-36.0); RED BLOOD COUNT 3.22 mill/uL (4.20-5.60); RED CELL DISTRI WIDTH 17.1 % (11.5-15.5)
[2017-12-07 05:53] LABS: ANION GAP 10 (6-22 (CALC)); BUN 3 mg/dL (7-17); BUN/CREATININE RATIO 4 (12-20 (CALC)); CARBON DIOXIDE 20 mmol/l (22-30); CHLORIDE 111 mmol/l (95-108); CREATININE 0.7 mg/dL (0.5-1.0); GFR > 60 ML/MIN (>=60 (CALC)); GFR FOR AFR.AMER. > 60 ML/MIN (>=60 (CALC)); MAGNESIUM 2.1 mg/dL (1.6-2.3); POTASSIUM 3.4 mmol/l (3.5-5.1); SODIUM 138 mmol/l (137-146)
[2017-12-08] VITALS (8 sets, daily range): BP systolic 83–118; BP diastolic 52–69
[2017-12-08 06:56] LABS: ANION GAP 9 (6-22 (CALC)); BUN < 2 mg/dL (7-17); BUN/CREATININE RATIO < 3 (12-20 (CALC)); CARBON DIOXIDE 20 mmol/l (22-30); CHLORIDE 113 mmol/l (95-108); CREATININE 0.7 mg/dL (0.5-1.0); GFR > 60 ML/MIN (>=60 (CALC)); GFR FOR AFR.AMER. > 60 ML/MIN (>=60 (CALC)); POTASSIUM 3.8 mmol/l (3.5-5.1); SODIUM 139 mmol/l (137-146)
[2017-12-08] MEDS ORDERED: CIPROFLOXACN500 MG PO (14:34)
[2017-12-08] MEDS ORDERED: PREDNISONE20 MG PO (14:34)
[2017-12-08] MEDS ORDERED: LORTAB 5/3255 MG PO (14:34)
[2017-12-08] MEDS ORDERED: METRONIDAZOL500 MG PO (14:34)
== END 2017-12-08 15:18 | disposition home or self-care (01) | DRG 386 ==
LOC: ED 20:35 → ED-I 12-06 02:40 → ED 12-06 02:55 → ICU 12-06 02:56
PROVIDERS: Emergency Medicine; Internal Medicine; ADMIT Internal Medicine; ATTEND Internal Medicine
DX: K50.10 Crohn's disease of large intestine without complications (principal); I47.2 Ventricular tachycardia; E87.6 Hypokalemia; F41.9 Anxiety disorder, unspecified; F31.9 Bipolar disorder, unspecified; F17.210 Nicotine dependence, cigarettes, uncomplicated

== ENCOUNTER 2018-04-23 13:31 | Emergency (ER) | payer OTHER ==
[~2018-04-23] VITALS: Ht 152.4 cm; Wt 66.4 kg
[~2018-04-23 13:31] MED LIST changes: +PREDNISONE20 MG PO
[2018-04-23] MEDS ORDERED: LEVOTHYROXIN50 MCG PO (13:50)
[2018-04-23] MEDS ORDERED: KLOR-CON M2020 MEQ PO (13:51)
[2018-04-23] MEDS ORDERED: DEPRESSION PO (13:51)
[2018-04-23] MEDS ORDERED: LEVOTHYROXIN25 MC1 PO (14:04)
[2018-04-23] MEDS ORDERED: VENLAFAXINE HCL75 M1 PO (14:04)
[2018-04-23] MEDS ORDERED: TORADOL PO (14:39)
[2018-04-23] MEDS ORDERED: CLEOCIN300 MG PO (14:39)
[2018-04-23 14:45] VITALS: BP 128/85
== END 2018-04-23 14:45 | disposition home or self-care (01) ==
LOC: ED 13:31
DX: L72.3 Sebaceous cyst (principal); F17.210 Nicotine dependence, cigarettes, uncomplicated; B95.7 Other staphylococcus as the cause of diseases classified elsewhere

== ENCOUNTER 2018-04-26 10:24 | Emergency (ER) | payer OTHER ==
[~2018-04-26] VITALS: Ht 152.4 cm; Wt 70.0 kg
[~2018-04-26 10:24] MED LIST changes: +CLEOCIN300 MG PO; +DEPRESSION PO; +KLOR-CON M2020 MEQ PO; +LEVOTHYROXIN25 MC1 PO; +LEVOTHYROXIN50 MCG PO; +VENLAFAXINE HCL75 M1 PO
[2018-04-26 11:23] VITALS: BP 123/87
== END 2018-04-26 11:23 | disposition home or self-care (01) ==
LOC: ED 10:24
DX: Z48.01 Encounter for change or removal of surgical wound dressing (principal); K50.00 Crohn's disease of small intestine without complications; R19.7 Diarrhea, unspecified; R63.4 Abnormal weight loss

== ENCOUNTER 2018-06-03 12:21 | Emergency (ER) | payer OTHER ==
[~2018-06-03] VITALS: Ht 152.4 cm; Wt 65.9 kg
[2018-06-03 13:23] LABS: HEMATOCRIT 39.4 % (37.0-47.0); MEAN CORPUSCULAR HGB 32.7 pG CALC (26.0-32.0); NEUT# 8.02 thou/uL (2.00-7.15); RED BLOOD COUNT 3.98 mill/uL (4.20-5.60); RED CELL DISTRI WIDTH 13.3 % (11.5-15.5)
[2018-06-03 13:39] LABS: URINE BILIRUBIN - DIPSTICK SMALL (NEGATIVE); URINE BLOOD DIPSTICK NEGATIVE (NEGATIVE); URINE CLARITY SL CLOUDY; URINE COLOR YELLOW; URINE GLUCOSE - DIPSTICK NEGATIVE (NEGATIVE); URINE KETONE TRACE mg/dL (NEGATIVE); URINE LEUK ESTERASE NEGATIVE (NEGATIVE); URINE NITRITE - DIPSTICK NEGATIVE (Negative); URINE PH 6.5 (4.5-8.0); URINE PROTEIN - DIPSTICK TRACE mg/dL (NEG-TRACE); URINE SPECIFIC GRAVITY 1.025; URINE UROBILINOGEN - DIPSTICK 0.2 E.U./dL (0.2)
[2018-06-03 14:23] LABS: ALBUMIN 1.9 g/dL (3.2-5.0); ALKALINE PHOSPHATASE 112 u/l (38-126); ANION GAP 5 (6-22 (CALC)); BILIRUBIN, TOTAL 0.3 mg/dL (0.0-1.4); BUN 9 mg/dL (7-17); BUN/CREATININE RATIO 12 (12-20 (CALC)); CARBON DIOXIDE 30 mmol/l (22-30); CHLORIDE 104 mmol/l (95-108); CREATININE 0.8 mg/dL (0.5-1.0); GFR > 60 ML/MIN (>=60 (CALC)); GFR FOR AFR.AMER. > 60 ML/MIN (>=60 (CALC)); POTASSIUM 2.9 mmol/l (3.5-5.1); SGOT/AST 19 u/l (14-36); SODIUM 137 mmol/l (137-146); TOTAL PROTEIN 5.1 g/dL (6.3-8.2)
[2018-06-03] MEDS ORDERED: K-DUR/KLOR-CON20 MEQ PO (16:36)
[2018-06-03] MEDS ORDERED: ZOFRAN4 MG/TAB PO (16:36)
[2018-06-03 16:47] VITALS: BP 112/70
== END 2018-06-03 16:54 | disposition home or self-care (01) ==
LOC: ED 12:21
PROVIDERS: Emergency Medicine
DX: R11.10 Vomiting, unspecified (principal); E87.6 Hypokalemia; R35.0 Frequency of micturition; F17.210 Nicotine dependence, cigarettes, uncomplicated; R53.1 Weakness; M32.9 Systemic lupus erythematosus, unspecified

== ENCOUNTER 2018-10-18 16:00 | Emergency (ER) | payer OTHER ==
[~2018-10-18] VITALS: Ht 152.4 cm; Wt 65.0 kg
[~2018-10-18 16:00] MED LIST changes: +K-DUR/KLOR-CON20 MEQ PO; +ZOFRAN4 MG/TAB PO
[2018-10-18 16:57] LABS: URINE BILIRUBIN - DIPSTICK NEGATIVE (NEGATIVE); URINE BLOOD DIPSTICK NEGATIVE (NEGATIVE); URINE COLOR YELLOW; URINE GLUCOSE - DIPSTICK NEGATIVE (NEGATIVE); URINE KETONE NEGATIVE (NEGATIVE); URINE LEUK ESTERASE NEGATIVE (NEGATIVE); URINE NITRITE - DIPSTICK NEGATIVE (Negative); URINE PROTEIN - DIPSTICK 30 mg/dL (NEG-TRACE); URINE SPECIFIC GRAVITY >=1.030; URINE UROBILINOGEN - DIPSTICK 0.2 E.U./dL (0.2)
[2018-10-18 16:58] LABS: HEMOGLOBIN 10.1 g/dl (12.0-16.0); IMMATURE GRANULOCYTES 0.1 % (0.0-5.0); MEAN CELL VOLUME 97.5 fL CALC (80.0-100.0); MEAN CORPUSCULAR HGB 31.8 pG CALC (26.0-32.0); MEAN CORPUSCULAR HGB CONC 32.6 g/L CALC (32.0-36.0); NEUT# 2.87 thou/uL (2.00-7.15); RED BLOOD COUNT 3.18 mill/uL (4.20-5.60); RED CELL DISTRI WIDTH 16.2 % (11.5-15.5)
[2018-10-18 17:40] LABS: ALBUMIN 1.6 g/dL (3.2-5.0); ALKALINE PHOSPHATASE 79 u/l (38-126); ANION GAP 8 (6-22 (CALC)); BILIRUBIN, TOTAL 0.2 mg/dL (0.0-1.4); BUN 11 mg/dL (7-17); BUN/CREATININE RATIO 13 (12-20 (CALC)); CARBON DIOXIDE 22 mmol/l (22-30); CHLORIDE 110 mmol/l (95-108); CREATININE 0.8 mg/dL (0.5-1.0); GFR > 60 ML/MIN (>=60 (CALC)); GFR FOR AFR.AMER. > 60 ML/MIN (>=60 (CALC)); POTASSIUM 3.1 mmol/l (3.5-5.1); SGOT/AST 39 u/l (14-36); SODIUM 138 mmol/l (137-146); TOTAL PROTEIN 4.3 g/dL (6.3-8.2)
[2018-10-18 18:15] LABS: URINE SQUAMOUS EPITHELIAL CELL FEW EPI/hpf (0-FEW)
[2018-10-18 18:40] VITALS: BP 98/67
[2018-10-18] MEDS ORDERED: K-DUR/KLOR-CON20 MEQ PO (18:55)
== END 2018-10-18 18:45 | disposition home or self-care (01) ==
LOC: ED 16:00
PROVIDERS: Emergency Medicine
DX: D64.9 Anemia, unspecified (principal); E03.9 Hypothyroidism, unspecified; E87.6 Hypokalemia; R60.0 Localized edema; F17.210 Nicotine dependence, cigarettes, uncomplicated; K50.90 Crohn's disease, unspecified, without complications; R53.82 Chronic fatigue, unspecified

== ENCOUNTER 2018-11-13 17:15 | Emergency (ER) | payer OTHER ==
[~2018-11-13] VITALS: Ht 152.4 cm; Wt 61.4 kg
[2018-11-13] MEDS ORDERED: PENICILLN VK500 MG PO (17:55)
[2018-11-13] MEDS ORDERED: TRAMADOL HYDROC50 MG PO (17:55)
[2018-11-13 18:05] VITALS: BP 115/83
== END 2018-11-13 18:05 | disposition home or self-care (01) ==
LOC: ED 17:15
DX: M84.48XA Pathological fracture, other site, initial encounter for fracture (principal); E03.9 Hypothyroidism, unspecified; F17.210 Nicotine dependence, cigarettes, uncomplicated

== ENCOUNTER 2019-01-04 18:30 | Emergency (ER) | payer OTHER ==
[~2019-01-04] VITALS: Ht 152.4 cm; Wt 134.0 kg
[~2019-01-04 18:30] MED LIST changes: +PENICILLN VK500 MG PO
[2019-01-04] MEDS ORDERED: LORAZEPAM0.5 MG PO (18:47)
[2019-01-04 19:20] LABS: HEMATOCRIT 34.8 % (37.0-47.0); HEMOGLOBIN 11.2 g/dl (12.0-16.0); IMMATURE GRANULOCYTES 0.5 % (0.0-5.0); MEAN CELL VOLUME 99.4 fL CALC (80.0-100.0); MEAN CORPUSCULAR HGB CONC 32.2 g/L CALC (32.0-36.0); NEUT# 10.8 thou/uL (2.00-7.15); RED BLOOD COUNT 3.5 mill/uL (4.20-5.60); RED CELL DISTRI WIDTH 12.7 % (11.5-15.5)
[2019-01-04 19:36] LABS: ALBUMIN 2.5 g/dL (3.2-5.0); ALKALINE PHOSPHATASE 124 u/l (38-126); AMYLASE < 30 u/l (30-110); ANION GAP 11 (6-22 (CALC)); BILIRUBIN, TOTAL 0.3 mg/dL (0.0-1.4); BUN 12 mg/dL (7-17); BUN/CREATININE RATIO 16 (12-20 (CALC)); CARBON DIOXIDE 24 mmol/l (22-30); CHLORIDE 106 mmol/l (95-108); CREATININE 0.8 mg/dL (0.5-1.0); GFR > 60 ML/MIN (>=60 (CALC)); GFR FOR AFR.AMER. > 60 ML/MIN (>=60 (CALC)); LIPASE 13 u/l (23-300); POTASSIUM 3.2 mmol/l (3.5-5.1); SGOT/AST 30 u/l (14-36); SODIUM 137 mmol/l (137-146)
[2019-01-04 20:46] LABS: URINE BILIRUBIN - DIPSTICK NEGATIVE (NEGATIVE); URINE BLOOD DIPSTICK NEGATIVE (NEGATIVE); URINE COLOR YELLOW; URINE GLUCOSE - DIPSTICK NEGATIVE (NEGATIVE); URINE KETONE NEGATIVE (NEGATIVE); URINE LEUK ESTERASE NEGATIVE (NEGATIVE); URINE NITRITE - DIPSTICK NEGATIVE (Negative); URINE PH 6.5 (4.5-8.0); URINE PROTEIN - DIPSTICK NEGATIVE (NEG-TRACE); URINE UROBILINOGEN - DIPSTICK 0.2 E.U./dL (0.2)
[2019-01-04] MEDS ORDERED: UCERIS9 MG PO (21:03)
[2019-01-04] MEDS ORDERED: TORADOL PO (21:03)
[2019-01-04] MEDS ORDERED: PHENERGAN25 MG/TAB PO (21:03)
[2019-01-04 21:16] VITALS: BP 132/80
== END 2019-01-04 21:22 | disposition home or self-care (01) ==
LOC: ED 18:30
PROVIDERS: Family Medicine
DX: K50.918 Crohn's disease, unspecified, with other complication (principal); R10.84 Generalized abdominal pain; R50.9 Fever, unspecified; F17.210 Nicotine dependence, cigarettes, uncomplicated
CPT/HCPCS: Q9967

== ENCOUNTER 2019-05-30 15:09 | Emergency (ER) | payer MEDICARE ==
[~2019-05-30] VITALS: Ht 152.4 cm; Wt 54.5 kg
[~2019-05-30 15:09] MED LIST changes: +LORAZEPAM0.5 MG PO; +PHENERGAN25 MG/TAB PO
[2019-05-30] MEDS ORDERED: LEVOTHYROXIN50 MCG PO (15:34)
[2019-05-30] MEDS ORDERED: KLOR-CON M2020 MEQ PO (15:34)
[2019-05-30 16:07] LABS: HEMATOCRIT 33.8 % (37.0-47.0); IMMATURE GRANULOCYTES 0.2 % (0.0-5.0); MEAN CORPUSCULAR HGB 29.7 pG CALC (26.0-32.0); MEAN CORPUSCULAR HGB CONC 32.5 g/L CALC (32.0-36.0); NEUT# 7.91 thou/uL (2.00-7.15); RED BLOOD COUNT 3.7 mill/uL (4.20-5.60); RED CELL DISTRI WIDTH 15.4 % (11.5-15.5)
[2019-05-30 16:13] LABS: MEAN CELL VOLUME 91.4 fL CALC (80.0-100.0)
[2019-05-30 16:20] LABS: ALKALINE PHOSPHATASE 146 u/l (38-126); ANION GAP 7 (6-22 (CALC)); BILIRUBIN, TOTAL 0.2 mg/dL (0.0-1.4); BUN 14 mg/dL (7-17); BUN/CREATININE RATIO 16 (12-20 (CALC)); CARBON DIOXIDE 26 mmol/l (22-30); CHLORIDE 104 mmol/l (95-108); CREATININE 0.9 mg/dL (0.5-1.0); GFR > 60 ML/MIN (>=60 (CALC)); GFR FOR AFR.AMER. > 60 ML/MIN (>=60 (CALC)); LIPASE < 10 u/l (23-300); POTASSIUM 3.2 mmol/l (3.5-5.1); SGOT/AST 38 u/l (14-36); SODIUM 133 mmol/l (137-146)
[2019-05-30 16:21] LABS: ALBUMIN 1.6 g/dL (3.2-5.0); AMYLASE < 30 u/l (30-110); TOTAL PROTEIN 4.3 g/dL (6.3-8.2)
[2019-05-30 17:53] LABS: URINE BILIRUBIN - DIPSTICK NEGATIVE (NEGATIVE); URINE BLOOD DIPSTICK NEGATIVE (NEGATIVE); URINE COLOR YELLOW; URINE GLUCOSE - DIPSTICK NEGATIVE (NEGATIVE); URINE KETONE NEGATIVE (NEGATIVE); URINE LEUK ESTERASE NEGATIVE (NEGATIVE); URINE NITRITE - DIPSTICK NEGATIVE (Negative); URINE PH 6.5 (4.5-8.0); URINE PROTEIN - DIPSTICK NEGATIVE (NEG-TRACE); URINE UROBILINOGEN - DIPSTICK 0.2 E.U./dL (0.2)
[2019-05-30] MEDS ORDERED: TORADOL PO (18:03)
[2019-05-30] MEDS ORDERED: STERAPRED DS10 MG PO (18:03)
[2019-05-30] MEDS ORDERED: PHENERGAN25 MG/TAB PO (18:03)
[2019-05-30 18:17] VITALS: BP 102/62
[2019-08-09] MEDS ORDERED: PREDNISONE10 MG PO (11:54)
== END 2019-05-30 18:21 | disposition home or self-care (01) ==
LOC: ED 15:09
PROVIDERS: Family Medicine
DX: K50.10 Crohn's disease of large intestine without complications (principal); E87.6 Hypokalemia; E03.9 Hypothyroidism, unspecified; F17.200 Nicotine dependence, unspecified, uncomplicated
CPT/HCPCS: Q9967; S0164

== ENCOUNTER 2019-07-16 18:36 | Emergency (ER) | payer MEDICARE ==
[~2019-07-16 18:36] MED LIST changes: +STERAPRED DS10 MG PO
[2019-07-16 19:13] VITALS: BP 106/74
[2019-07-16] MEDS ORDERED: AZULFIDINE500 M1 PO (19:25)
== END 2019-07-16 19:45 | disposition home or self-care (01) ==
LOC: ED 18:36
DX: L30.8 Other specified dermatitis (principal); R19.7 Diarrhea, unspecified; K50.90 Crohn's disease, unspecified, without complications; E03.9 Hypothyroidism, unspecified; F17.210 Nicotine dependence, cigarettes, uncomplicated

== ENCOUNTER 2019-08-06 21:33 | Inpatient (IN) | payer MEDICARE, MEDICAID ==
[~2019-08-06] VITALS: Ht 152.4 cm; Wt 59.0 kg
[~2019-08-06 21:33] MED LIST changes: +AZULFIDINE500 M1 PO
[2019-08-06 22:21] LABS: HEMOGLOBIN 9.2 g/dl (12.0-16.0); IMMATURE GRANULOCYTES 0.4 % (0.0-5.0); MEAN CELL VOLUME 90.5 fL CALC (80.0-100.0); MEAN CORPUSCULAR HGB 31.2 pG CALC (26.0-32.0); MEAN CORPUSCULAR HGB CONC 34.5 g/L CALC (32.0-36.0); NEUT# 9.13 thou/uL (2.00-7.15); RED BLOOD COUNT 2.95 mill/uL (4.20-5.60); RED CELL DISTRI WIDTH 14.6 % (11.5-15.5)
[2019-08-06 22:22] LABS: HEMATOCRIT 26.7 % (37.0-47.0)
[2019-08-06 22:25] LABS: URINE BILIRUBIN - DIPSTICK NEGATIVE (NEGATIVE); URINE BLOOD DIPSTICK TRACE-LYSED (NEGATIVE); URINE COLOR YELLOW; URINE GLUCOSE - DIPSTICK NEGATIVE (NEGATIVE); URINE KETONE NEGATIVE (NEGATIVE); URINE NITRITE - DIPSTICK NEGATIVE (Negative); URINE PROTEIN - DIPSTICK TRACE mg/dL (NEG-TRACE); URINE UROBILINOGEN - DIPSTICK 0.2 E.U./dL (0.2)
[2019-08-06 22:29] LABS: URINE BACTERIA FEW hpf; URINE EPITHELIAL CELLS MODERATE EPI/hpf (0-FEW); URINE LEUK ESTERASE MODERATE (NEGATIVE); URINE RBC 0-2 RBC/hpf (0-5)
[2019-08-06 22:34] LABS: ALBUMIN 1.5 g/dL (3.2-5.0); ALKALINE PHOSPHATASE 113 u/l (38-126); BUN 5 mg/dL (7-17); BUN/CREATININE RATIO 5 (12-20 (CALC)); CARBON DIOXIDE 23 mmol/l (22-30); CHLORIDE 104 mmol/l (95-108); CREATININE 1.1 mg/dL (0.5-1.0); GFR 56 ML/MIN (>=60 (CALC)); GFR FOR AFR.AMER. > 60 ML/MIN (>=60 (CALC)); LIPASE < 10 u/l (23-300); SGOT/AST 32 u/l (14-36); SODIUM 131 mmol/l (137-146); TOTAL PROTEIN 4.4 g/dL (6.3-8.2)
[2019-08-06 22:36] LABS: AMYLASE < 30 u/l (30-110); ANION GAP 6 (6-22 (CALC)); BILIRUBIN, TOTAL 0.4 mg/dL (0.0-1.4); POTASSIUM 1.9 mmol/l (3.5-5.1)
[2019-08-07 02:05] VITALS: BP 90/51
[2019-08-07 04:36] LABS: HEMOGLOBIN 8.6 g/dl (12.0-16.0); IMMATURE GRANULOCYTES 0.6 % (0.0-5.0); MEAN CELL VOLUME 91.9 fL CALC (80.0-100.0); MEAN CORPUSCULAR HGB 31.6 pG CALC (26.0-32.0); MEAN CORPUSCULAR HGB CONC 34.4 g/L CALC (32.0-36.0); NEUT# 10.88 thou/uL (2.00-7.15); RED BLOOD COUNT 2.72 mill/uL (4.20-5.60); RED CELL DISTRI WIDTH 14.6 % (11.5-15.5)
[2019-08-07 04:56] VITALS: BP 86/62
[2019-08-07 04:56] LABS: BUN 5 mg/dL (7-17); BUN/CREATININE RATIO 6 (12-20 (CALC)); CHLORIDE 109 mmol/l (95-108); GFR > 60 ML/MIN (>=60 (CALC)); GFR FOR AFR.AMER. > 60 ML/MIN (>=60 (CALC)); MAGNESIUM 1.6 mg/dL (1.6-2.3); SODIUM 133 mmol/l (137-146)
[2019-08-07 04:57] LABS: ANION GAP 9 (6-22 (CALC)); CARBON DIOXIDE 18 mmol/l (22-30); POTASSIUM 2.9 mmol/l (3.5-5.1)
[2019-08-07 07:35] VITALS: BP 65/49
[2019-08-07 11:37] VITALS: BP 84/60
[2019-08-07 15:27] VITALS: BP 90/60
[2019-08-07 19:06] VITALS: BP 114/63
[2019-08-08 04:00] VITALS: BP 122/71
[2019-08-08 04:59] LABS: HEMATOCRIT 26.4 % (37.0-47.0); HEMOGLOBIN 8.7 g/dl (12.0-16.0); MEAN CORPUSCULAR HGB 31.3 pG CALC (26.0-32.0); RED BLOOD COUNT 2.78 mill/uL (4.20-5.60); RED CELL DISTRI WIDTH 14.7 % (11.5-15.5)
[2019-08-08 05:19] LABS: BUN 7 mg/dL (7-17); BUN/CREATININE RATIO 8 (12-20 (CALC)); CHLORIDE 117 mmol/l (95-108); CREATININE 0.9 mg/dL (0.5-1.0); GFR > 60 ML/MIN (>=60 (CALC)); GFR FOR AFR.AMER. > 60 ML/MIN (>=60 (CALC)); SODIUM 133 mmol/l (137-146)
[2019-08-08 05:43] LABS: ANION GAP 9 (6-22 (CALC)); CARBON DIOXIDE 14 mmol/l (22-30); POTASSIUM 6.7 mmol/l (3.5-5.1)
[2019-08-08 07:39] VITALS: BP 89/46
[2019-08-08 09:36] LABS: ANION GAP 9 (6-22 (CALC)); BUN 7 mg/dL (7-17); BUN/CREATININE RATIO 8 (12-20 (CALC)); CARBON DIOXIDE 15 mmol/l (22-30); CHLORIDE 117 mmol/l (95-108); CREATININE 0.9 mg/dL (0.5-1.0); GFR > 60 ML/MIN (>=60 (CALC)); GFR FOR AFR.AMER. > 60 ML/MIN (>=60 (CALC)); POTASSIUM 5.9 mmol/l (3.5-5.1); SODIUM 135 mmol/l (137-146)
[2019-08-08 10:45] VITALS: BP 90/60
[2019-08-08 15:26] VITALS: BP 82/61
[2019-08-08 18:55] VITALS: BP 81/51
[2019-08-08 23:55] VITALS: BP 84/50
[2019-08-09 03:37] VITALS: BP 87/58
[2019-08-09 05:27] LABS: HEMATOCRIT 25.9 % (37.0-47.0); HEMOGLOBIN 8.1 g/dl (12.0-16.0); MEAN CELL VOLUME 98.9 fL CALC (80.0-100.0); MEAN CORPUSCULAR HGB 30.9 pG CALC (26.0-32.0); MEAN CORPUSCULAR HGB CONC 31.3 g/L CALC (32.0-36.0); RED BLOOD COUNT 2.62 mill/uL (4.20-5.60); RED CELL DISTRI WIDTH 15.4 % (11.5-15.5)
[2019-08-09 05:58] LABS: ANION GAP 7 (6-22 (CALC)); BUN 8 mg/dL (7-17); BUN/CREATININE RATIO 9 (12-20 (CALC)); CARBON DIOXIDE 17 mmol/l (22-30); CHLORIDE 115 mmol/l (95-108); CREATININE 0.9 mg/dL (0.5-1.0); GFR > 60 ML/MIN (>=60 (CALC)); GFR FOR AFR.AMER. > 60 ML/MIN (>=60 (CALC)); SODIUM 133 mmol/l (137-146)
[2019-08-09 05:59] LABS: POTASSIUM 5.6 mmol/l (3.5-5.1)
[2019-08-09 07:45] VITALS: BP 85/54
[2019-08-09 11:15] VITALS: BP 82/59
[2019-08-09] MEDS ORDERED: KEFLEX500 MG PO (11:54)
[2019-08-09] MEDS ORDERED: PREDNISONE10 MG PO ×2 (11:54)
== END 2019-08-09 14:22 | disposition home or self-care (01) | DRG 386 ==
LOC: ED 21:33 → ED-I 23:47 → ED 08-07 00:15 → MS2 08-07 00:16
PROVIDERS: Family Medicine; Internal Medicine; Nurse Practitioner Family; ADMIT Internal Medicine; ATTEND Internal Medicine
DX: K50.90 Crohn's disease, unspecified, without complications (principal); N39.0 Urinary tract infection, site not specified; T50.3X1A Poisoning by electrolytic, caloric and water-balance agents, accidental (unintentional), initial encounter; E87.5 Hyperkalemia; E83.42 Hypomagnesemia; E86.0 Dehydration; T50.916A Underdosing of multiple unspecified drugs, medicaments and biological substances, initial encounter; F41.1 Generalized anxiety disorder; F32.9 Major depressive disorder, single episode, unspecified; B96.20 Unspecified Escherichia coli [E. coli] as the cause of diseases classified elsewhere; F17.210 Nicotine dependence, cigarettes, uncomplicated; T38.0X5A Adverse effect of glucocorticoids and synthetic analogues, initial encounter; Z91.120 Patient's intentional underdosing of medication regimen due to financial hardship
CPT/HCPCS: G0378; J1650; J3475

== ENCOUNTER 2020-02-18 14:44 | Emergency (ER) | payer MEDICARE ==
[~2020-02-18] VITALS: Ht 152.4 cm; Wt 65.0 kg
[2020-02-18] MEDS ORDERED: ENTYVIO300 MG IV (14:56)
[2020-02-18] MEDS ORDERED: BACTRIM DS1 TAB PO ×2 (15:25)
[2020-02-18 15:32] VITALS: BP 119/88
== END 2020-02-18 15:35 | disposition home or self-care (01) ==
LOC: ED 14:44
PROC: 0H91XZZ Drainage of Face Skin, External Approach (ICD-10-PCS; principal; 2020-02-18)
DX: L02.01 Cutaneous abscess of face (principal); F17.210 Nicotine dependence, cigarettes, uncomplicated

== ENCOUNTER 2020-04-06 18:47 | Emergency (ER) | payer MEDICARE ==
[~2020-04-06] VITALS: Ht 152.4 cm; Wt 62.0 kg
[~2020-04-06 18:47] MED LIST changes: +ENTYVIO300 MG IV
[2020-04-06 19:29] LABS: HEMATOCRIT 36.2 % (37.0-47.0); HEMOGLOBIN 10.9 g/dl (12.0-16.0); IMMATURE GRANULOCYTES 0.7 % (0.0-5.0); MEAN CELL VOLUME 84.2 fL CALC (80.0-100.0); MEAN CORPUSCULAR HGB 25.3 pG CALC (26.0-32.0); MEAN CORPUSCULAR HGB CONC 30.1 g/dL CAL (32.0-36.0); NEUT# 9.54 thou/uL (2.00-7.15); RED BLOOD COUNT 4.3 mill/uL (4.20-5.60)
[2020-04-06 19:40] LABS: ALKALINE PHOSPHATASE 146 u/l (38-126); ANION GAP 8 (6-22 (CALC)); BUN 11 mg/dL (7-17); BUN/CREATININE RATIO 17 (12-20 (CALC)); CARBON DIOXIDE 27 mmol/l (22-30); CHLORIDE 103 mmol/l (95-108); CREATININE 0.7 mg/dL (0.5-1.0); GFR > 60 ML/MIN (>=60 (CALC)); GFR FOR AFR.AMER. > 60 ML/MIN (>=60 (CALC)); POTASSIUM 3.7 mmol/l (3.5-5.1); SGOT/AST 24 u/l (14-36); SODIUM 135 mmol/l (137-146); TOTAL PROTEIN 7.1 g/dL (6.3-8.2)
[2020-04-06 19:42] LABS: BILIRUBIN, TOTAL 0.5 mg/dL (0.0-1.4)
[2020-04-06 19:48] LABS: PROTHROMBIN TIME 10.1 SECONDS (9.0-12.5)
[2020-04-06 20:19] LABS: URINE BILIRUBIN - DIPSTICK NEGATIVE (NEGATIVE); URINE BLOOD DIPSTICK NEGATIVE (NEGATIVE); URINE COLOR YELLOW; URINE GLUCOSE - DIPSTICK NEGATIVE (NEGATIVE); URINE KETONE TRACE mg/dL (NEGATIVE); URINE LEUK ESTERASE NEGATIVE (NEGATIVE); URINE NITRITE - DIPSTICK NEGATIVE (Negative); URINE PROTEIN - DIPSTICK TRACE mg/dL (NEG-TRACE); URINE SPECIFIC GRAVITY >=1.030; URINE UROBILINOGEN - DIPSTICK 0.2 E.U./dL (0.2)
[2020-04-06 21:28] VITALS: BP 96/62
== END 2020-04-06 21:28 | disposition home or self-care (01) ==
LOC: ED 18:47
PROVIDERS: Emergency Medicine; Family Medicine
DX: R00.2 Palpitations (principal); E03.9 Hypothyroidism, unspecified; F17.210 Nicotine dependence, cigarettes, uncomplicated

== ENCOUNTER 2021-05-31 09:49 | Emergency (ER) | payer MEDICARE ==
[~2021-05-31] VITALS: Ht 152.4 cm; Wt 68.0 kg
[2021-05-31 11:20] VITALS: BP 102/67
[2021-05-31] MEDS ORDERED: PREDNISONE50 MG PO (11:32)
[2021-05-31] MEDS ORDERED: BENADRYL25 M1 PO (11:32)
== END 2021-05-31 11:41 | disposition home or self-care (01) ==
LOC: ED 09:49
DX: R07.89 Other chest pain (principal); L50.0 Allergic urticaria; T50.995A Adverse effect of other drugs, medicaments and biological substances, initial encounter; K50.90 Crohn's disease, unspecified, without complications; F32.A Depression, unspecified; F41.9 Anxiety disorder, unspecified; E03.9 Hypothyroidism, unspecified; F17.210 Nicotine dependence, cigarettes, uncomplicated

== ENCOUNTER 2021-07-22 09:33 | Emergency (ER) | payer MEDICARE ==
[~2021-07-22] VITALS: Ht 152.4 cm; Wt 70.0 kg
[~2021-07-22 09:33] MED LIST changes: +BENADRYL25 M1 PO; +PREDNISONE50 MG PO
[2021-07-22 13:00] VITALS: BP 130/60
== END 2021-07-22 13:15 | disposition home or self-care (01) ==
LOC: ED 09:33
DX: U07.1 COVID-19 (principal); K50.90 Crohn's disease, unspecified, without complications; E03.9 Hypothyroidism, unspecified; F32.A Depression, unspecified; F41.9 Anxiety disorder, unspecified; F17.210 Nicotine dependence, cigarettes, uncomplicated

== ENCOUNTER 2021-09-23 15:48 | Emergency (ER) | payer MEDICARE ==
[~2021-09-23] VITALS: Ht 152.4 cm; Wt 66.0 kg
[2021-09-23] VITALS (9 sets, daily range): BP systolic 95–109; BP diastolic 61–81
[2021-09-23 16:57] LABS: HEMATOCRIT 40.2 % (37.0-47.0); HEMOGLOBIN 12.3 g/dl (12.0-16.0); IMMATURE GRANULOCYTES 0.3 % (0.0-5.0); MEAN CELL VOLUME 87.2 fL CALC (80.0-100.0); MEAN CORPUSCULAR HGB 26.7 pG CALC (26.0-32.0); MEAN CORPUSCULAR HGB CONC 30.6 g/dL CAL (32.0-36.0); NEUT# 11.37 thou/uL (2.00-7.15); RED BLOOD COUNT 4.61 mill/uL (4.20-5.60); RED CELL DISTRI WIDTH 17.4 % (11.5-15.5)
[2021-09-23 17:10] LABS: ALBUMIN 3.3 g/dL (3.2-5.0); ALKALINE PHOSPHATASE 162 u/l (38-126); ANION GAP 9 (6-22 (CALC)); BILIRUBIN, TOTAL 0.4 mg/dL (0.0-1.4); BUN 11 mg/dL (7-17); BUN/CREATININE RATIO 13 (12-20 (CALC)); CARBON DIOXIDE 26 mmol/l (22-30); CHLORIDE 104 mmol/l (95-108); CREATININE 0.8 mg/dL (0.5-1.0); GFR > 60 ML/MIN (>=60 (CALC)); GFR FOR AFR.AMER. > 60 ML/MIN (>=60 (CALC)); LIPASE 29 u/l (23-300); POTASSIUM 3.4 mmol/l (3.5-5.1); SGOT/AST 24 u/l (14-36); SODIUM 135 mmol/l (137-146); TOTAL PROTEIN 7.8 g/dL (6.3-8.2)
[2021-09-23 17:39] LABS: URINE BILIRUBIN - DIPSTICK NEGATIVE (NEGATIVE); URINE BLOOD DIPSTICK NEGATIVE (NEGATIVE); URINE COLOR YELLOW; URINE GLUCOSE - DIPSTICK NEGATIVE (NEGATIVE); URINE KETONE NEGATIVE (NEGATIVE); URINE LEUK ESTERASE NEGATIVE (NEGATIVE); URINE PROTEIN - DIPSTICK TRACE mg/dL (NEG-TRACE); URINE SPECIFIC GRAVITY >=1.030; URINE UROBILINOGEN - DIPSTICK 0.2 E.U./dL (0.2)
[2021-09-23 17:40] LABS: URINE NITRITE - DIPSTICK NEGATIVE (Negative)
== END 2021-09-23 19:51 | disposition left against medical advice (07) ==
LOC: ED 15:48
PROVIDERS: Family Medicine
DX: Z91.19 Patient's noncompliance with other medical treatment and regimen (principal)

== ENCOUNTER 2022-03-16 17:43 | Observation (INO) | payer MEDICARE ==
[~2022-03-16] VITALS: Ht 152.4 cm; Wt 70.0 kg
[2022-03-16] VITALS (18 sets, daily range): BP systolic 94–124; BP diastolic 62–91
[2022-03-16 18:26] LABS: HEMATOCRIT 43.6 % (37.0-47.0); IMMATURE GRANULOCYTES 0.3 % (0.0-5.0); MEAN CELL VOLUME 86.9 fL CALC (80.0-100.0); MEAN CORPUSCULAR HGB 26.9 pG CALC (26.0-32.0); NEUT# 10.03 thou/uL (2.00-7.15); RED BLOOD COUNT 5.02 mill/uL (4.20-5.60)
[2022-03-16 18:36] LABS: HEMOGLOBIN 13.5 g/dl (12.0-16.0)
[2022-03-16 19:00] LABS: BUN 12 mg/dL (7-17); BUN/CREATININE RATIO 14 (12-20 (CALC)); CARBON DIOXIDE 22 mmol/l (22-30); CHLORIDE 105 mmol/l (95-108); CREATININE 0.9 mg/dL (0.5-1.0); GFR FOR AFR.AMER. > 60 ML/MIN (>=60 (CALC)); GFR OTHER RACES > 60 ML/MIN (>=60 (CALC)); LIPASE 27 u/l (23-300); SGOT/AST 32 u/l (14-36); SODIUM 137 mmol/l (137-146)
[2022-03-16 19:01] LABS: ALBUMIN 3.8 g/dL (3.2-5.0); ALKALINE PHOSPHATASE 182 u/l (38-126); ANION GAP 13 (6-22 (CALC)); BILIRUBIN, TOTAL 0.5 mg/dL (0.0-1.4); POTASSIUM 3.3 mmol/l (3.5-5.1); TOTAL PROTEIN 8.5 g/dL (6.3-8.2)
[2022-03-16 19:23] LABS: URINE BILIRUBIN - DIPSTICK NEGATIVE (NEGATIVE); URINE BLOOD DIPSTICK NEGATIVE (NEGATIVE); URINE COLOR YELLOW; URINE GLUCOSE - DIPSTICK NEGATIVE (NEGATIVE); URINE KETONE NEGATIVE (NEGATIVE); URINE LEUK ESTERASE NEGATIVE (NEGATIVE); URINE PROTEIN - DIPSTICK 30 mg/dL (NEG-TRACE); URINE SPECIFIC GRAVITY >=1.030; URINE UROBILINOGEN - DIPSTICK 0.2 E.U./dL (0.2)
[2022-03-16 19:39] LABS: URINE NITRITE - DIPSTICK NEGATIVE (Negative)
[2022-03-16 19:40] LABS: URINE RBC 0-2 RBC/hpf (0-5); URINE SQUAMOUS EPITHELIAL CELL FEW EPI/hpf (0-FEW); URINE WBC 0-2 WBC/hpf (0-5)
[2022-03-17 04:05] VITALS: BP 90/51
[2022-03-17 06:45] VITALS: BP 92/64
[2022-03-17 07:35] LABS: HEMATOCRIT 38.8 % (37.0-47.0); HEMOGLOBIN 12.2 g/dl (12.0-16.0); MEAN CELL VOLUME 85.3 fL CALC (80.0-100.0); MEAN CORPUSCULAR HGB 26.8 pG CALC (26.0-32.0); MEAN CORPUSCULAR HGB CONC 31.4 g/dL CAL (32.0-36.0); RED BLOOD COUNT 4.55 mill/uL (4.20-5.60); RED CELL DISTRI WIDTH 14.9 % (11.5-15.5)
[2022-03-17 07:46] LABS: ALBUMIN 3.3 g/dL (3.2-5.0); ALKALINE PHOSPHATASE 135 u/l (38-126); BILIRUBIN, TOTAL 0.5 mg/dL (0.0-1.4); BUN 10 mg/dL (7-17); BUN/CREATININE RATIO 12 (12-20 (CALC)); CARBON DIOXIDE 21 mmol/l (22-30); CHLORIDE 108 mmol/l (95-108); CREATININE 0.8 mg/dL (0.5-1.0); GFR FOR AFR.AMER. > 60 ML/MIN (>=60 (CALC)); GFR OTHER RACES > 60 ML/MIN (>=60 (CALC)); SGOT/AST 25 u/l (14-36); SODIUM 136 mmol/l (137-146); TOTAL PROTEIN 7.4 g/dL (6.3-8.2)
[2022-03-17 07:50] LABS: ANION GAP 11 (6-22 (CALC)); POTASSIUM 4.1 mmol/l (3.5-5.1)
[2022-03-17] MEDS ORDERED: LEVOTHYROXIN50 MC1 PO (10:18)
[2022-03-17] MEDS ORDERED: CERTOLIZUMAB PEGOL IJ (10:21)
[2022-03-17] MEDS ORDERED: PREDNISONE10 M2 PO (13:03)
[2022-03-17] MEDS ORDERED: CIPROFLOXACN500 MG PO (13:04)
[2022-03-17] MEDS ORDERED: METRONIDAZOLE500 MG PO (13:07)
[2022-03-17] MEDS ORDERED: ZOFRAN4 MG/TAB PO (13:12)
[2022-03-17] MEDS ORDERED: ULTRAM50 M1 PO (14:02)
== END 2022-03-17 14:50 | disposition home or self-care (01) ==
LOC: ED 17:43 → ED-I 20:45 → ED 21:18 → MS2 21:19
PROVIDERS: Family Medicine; ADMIT Internal Medicine; ATTEND Internal Medicine
DX: K51.90 Ulcerative colitis, unspecified, without complications (principal); E03.9 Hypothyroidism, unspecified; L93.0 Discoid lupus erythematosus; F41.9 Anxiety disorder, unspecified; F31.9 Bipolar disorder, unspecified; E66.9 Obesity, unspecified; F17.200 Nicotine dependence, unspecified, uncomplicated; Z68.30 Body mass index [BMI] 30.0-30.9, adult; Z20.822 Contact with and (suspected) exposure to COVID-19

== ENCOUNTER 2022-07-30 11:32 | Inpatient (IN) | payer MEDICARE ==
[~2022-07-30] VITALS: Ht 152.4 cm; Wt 76.0 kg
[2022-07-30] VITALS (31 sets, daily range): BP systolic 95–141; BP diastolic 54–87
[~2022-07-30 11:32] MED LIST changes: +CERTOLIZUMAB PEGOL IJ; +LEVOTHYROXIN50 MC1 PO; +METRONIDAZOLE500 MG PO; +PREDNISONE10 M2 PO
[2022-07-30 12:32] LABS: BASO% 0.4 % (0-3); EOS% 0.9 % (0-8); IMMATURE GRANULOCYTES 0.9 % (0.0-5.0); MEAN CELL VOLUME 83.9 fL CALC (80.0-100.0); MEAN CORPUSCULAR HGB 27.7 pG CALC (26.0-32.0); MONO% 7.4 % (2-13); NEUT# 11.97 thou/uL (2.00-7.15); NEUT% 73.4 % (42-76); RED BLOOD COUNT 4.98 mill/uL (4.20-5.60)
[2022-07-30 12:36] LABS: URINE BILIRUBIN - DIPSTICK NEGATIVE (NEGATIVE); URINE BLOOD DIPSTICK TRACE-INTACT (NEGATIVE); URINE COLOR YELLOW; URINE GLUCOSE - DIPSTICK NEGATIVE (NEGATIVE); URINE KETONE TRACE mg/dL (NEGATIVE); URINE LEUK ESTERASE NEGATIVE (NEGATIVE); URINE PROTEIN - DIPSTICK 30 mg/dL (NEG-TRACE); URINE SPECIFIC GRAVITY >=1.030; URINE UROBILINOGEN - DIPSTICK 0.2 E.U./dL (0.2)
[2022-07-30 12:37] LABS: HEMATOCRIT 41.8 % (37.0-47.0); HEMOGLOBIN 13.8 g/dl (12.0-16.0)
[2022-07-30 12:38] LABS: ALKALINE PHOSPHATASE 99 u/l (38-126); AMYLASE 49 u/l (30-110); BILIRUBIN, TOTAL 0.5 mg/dL (0.0-1.4); BUN 12 mg/dL (7-17); BUN/CREATININE RATIO 15 (12-20 (CALC)); CHLORIDE 107 mmol/l (95-108); CREATININE 0.8 mg/dL (0.5-1.0); GFR FOR AFR.AMER. > 60 ML/MIN (>=60 (CALC)); GFR OTHER RACES > 60 ML/MIN (>=60 (CALC)); LIPASE 23 u/l (23-300); SGOT/AST 26 u/l (14-36); SODIUM 137 mmol/l (137-146)
[2022-07-30 12:40] LABS: ALBUMIN 3.7 g/dL (3.2-5.0); ANION GAP 8 (6-22 (CALC)); CARBON DIOXIDE 25 mmol/l (22-30); TOTAL PROTEIN 7.3 g/dL (6.3-8.2)
[2022-07-30 12:41] LABS: URINE EPITHELIAL CELLS FEW EPI/hpf (0-FEW); URINE MUCUS MODERATE hpf (NONE-FEW); URINE NITRITE - DIPSTICK NEGATIVE (Negative)
[2022-07-31 04:07] VITALS: BP 105/61
[2022-07-31 05:53] LABS: BASO% 0.2 % (0-3); EOS% 0.1 % (0-8); HEMATOCRIT 36.7 % (37.0-47.0); IMMATURE GRANULOCYTES 0.4 % (0.0-5.0); LYMPH% 14.1 % (15-41); MEAN CELL VOLUME 85.2 fL CALC (80.0-100.0); MEAN CORPUSCULAR HGB 27.8 pG CALC (26.0-32.0); MEAN CORPUSCULAR HGB CONC 32.7 g/dL CAL (32.0-36.0); NEUT# 10.51 thou/uL (2.00-7.15); NEUT% 81.2 % (42-76); RED BLOOD COUNT 4.31 mill/uL (4.20-5.60); RED CELL DISTRI WIDTH 16.7 % (11.5-15.5)
[2022-07-31 06:00] LABS: ALKALINE PHOSPHATASE 85 u/l (38-126); ANION GAP 9 (6-22 (CALC)); BILIRUBIN, TOTAL 0.4 mg/dL (0.0-1.4); BUN 6 mg/dL (7-17); BUN/CREATININE RATIO 7 (12-20 (CALC)); CARBON DIOXIDE 22 mmol/l (22-30); CHLORIDE 110 mmol/l (95-108); CREATININE 0.8 mg/dL (0.5-1.0); GFR FOR AFR.AMER. > 60 ML/MIN (>=60 (CALC)); GFR OTHER RACES > 60 ML/MIN (>=60 (CALC)); SGOT/AST 15 u/l (14-36); SODIUM 137 mmol/l (137-146); TOTAL PROTEIN 6.1 g/dL (6.3-8.2)
[2022-07-31 06:01] LABS: POTASSIUM 3.8 mmol/l (3.5-5.1)
[2022-07-31 06:11] VITALS: BP 94/57
[2022-07-31 10:15] VITALS: BP 101/63
[2022-07-31 14:32] VITALS: BP 119/71
[2022-07-31 18:43] VITALS: BP 106/64
[2022-07-31 19:00] VITALS: BP 106/64
[2022-08-01 03:54] VITALS: BP 103/55
[2022-08-01 04:00] VITALS: BP 103/55
[2022-08-01 05:21] LABS: BASO% 0.1 % (0-3); EOS% 0.1 % (0-8); HEMATOCRIT 33.6 % (37.0-47.0); HEMOGLOBIN 10.9 g/dl (12.0-16.0); IMMATURE GRANULOCYTES 1.2 % (0.0-5.0); LYMPH% 26.2 % (15-41); MEAN CELL VOLUME 86.8 fL CALC (80.0-100.0); MEAN CORPUSCULAR HGB 28.2 pG CALC (26.0-32.0); MEAN CORPUSCULAR HGB CONC 32.4 g/dL CAL (32.0-36.0); MONO% 5.7 % (2-13); NEUT# 9.19 thou/uL (2.00-7.15); NEUT% 66.7 % (42-76); RED BLOOD COUNT 3.87 mill/uL (4.20-5.60)
[2022-08-01 05:43] LABS: ALBUMIN 2.6 g/dL (3.2-5.0); ALKALINE PHOSPHATASE 62 u/l (38-126); ANION GAP 6 (6-22 (CALC)); BUN 8 mg/dL (7-17); BUN/CREATININE RATIO 10 (12-20 (CALC)); CARBON DIOXIDE 22 mmol/l (22-30); CHLORIDE 114 mmol/l (95-108); CREATININE 0.9 mg/dL (0.5-1.0); GFR FOR AFR.AMER. > 60 ML/MIN (>=60 (CALC)); GFR OTHER RACES > 60 ML/MIN (>=60 (CALC)); POTASSIUM 3.5 mmol/l (3.5-5.1); SGOT/AST 14 u/l (14-36); SODIUM 138 mmol/l (137-146); TOTAL PROTEIN 5.4 g/dL (6.3-8.2)
[2022-08-01 19:00] VITALS: BP 119/69
[2022-08-01 19:36] VITALS: BP 119/69
[2022-08-02 03:36] VITALS: BP 109/56
[2022-08-02 04:00] VITALS: BP 109/56
[2022-08-02 05:01] LABS: BASO% 0.1 % (0-3); EOS% 0.1 % (0-8); HEMATOCRIT 34.4 % (37.0-47.0); HEMOGLOBIN 11.1 g/dl (12.0-16.0); IMMATURE GRANULOCYTES 0.6 % (0.0-5.0); LYMPH% 23.4 % (15-41); MEAN CELL VOLUME 86.6 fL CALC (80.0-100.0); MEAN CORPUSCULAR HGB CONC 32.3 g/dL CAL (32.0-36.0); MONO% 6.3 % (2-13); NEUT# 11.22 thou/uL (2.00-7.15); NEUT% 69.5 % (42-76); RED BLOOD COUNT 3.97 mill/uL (4.20-5.60); RED CELL DISTRI WIDTH 17.3 % (11.5-15.5)
[2022-08-02 05:14] LABS: ALBUMIN 2.7 g/dL (3.2-5.0); ALKALINE PHOSPHATASE 66 u/l (38-126); ANION GAP 5 (6-22 (CALC)); BUN 13 mg/dL (7-17); BUN/CREATININE RATIO 13 (12-20 (CALC)); CARBON DIOXIDE 20 mmol/l (22-30); CHLORIDE 116 mmol/l (95-108); GFR FOR AFR.AMER. > 60 ML/MIN (>=60 (CALC)); GFR OTHER RACES > 60 ML/MIN (>=60 (CALC)); POTASSIUM 3.4 mmol/l (3.5-5.1); SGOT/AST 15 u/l (14-36); SODIUM 137 mmol/l (137-146); TOTAL PROTEIN 5.4 g/dL (6.3-8.2)
[2022-08-02 07:34] VITALS: BP 113/69
[2022-08-02] MEDS ORDERED: AMOX/K CLAV875 M1 PO (11:51)
[2022-08-02] MEDS ORDERED: PREDNISONE20 MG PO (11:51)
== END 2022-08-02 13:02 | disposition home or self-care (01) | DRG 387 ==
LOC: ED 11:32 → ED-I 16:40 → ED 16:56 → MS2 16:57
PROVIDERS: Internal Medicine; Nurse Practitioner; Nurse Practitioner Family; ADMIT Internal Medicine; ATTEND Internal Medicine
DX: K50.012 Crohn's disease of small intestine with intestinal obstruction (principal); L93.0 Discoid lupus erythematosus; E03.9 Hypothyroidism, unspecified; F41.9 Anxiety disorder, unspecified; F31.9 Bipolar disorder, unspecified; F17.200 Nicotine dependence, unspecified, uncomplicated
CPT/HCPCS: J1650; Q9967

== ENCOUNTER 2023-07-15 10:35 | Observation (INO) | payer MEDICARE, MEDICAID ==
[~2023-07-15] VITALS: Ht 152.4 cm; Wt 75.0 kg
[2023-07-15] VITALS (16 sets, daily range): BP systolic 98–122; BP diastolic 55–80
[~2023-07-15 10:35] MED LIST changes: +AMOX/K CLAV875 M1 PO
[2023-07-15 11:45] LABS: BASO% 0.6 % (0-3); EOS% 1.6 % (0-8); HEMATOCRIT 41.5 % (37.0-47.0); HEMOGLOBIN 13.1 g/dl (12.0-16.0); IMMATURE GRANULOCYTES 0.2 % (0.0-5.0); LYMPH% 19.7 % (15-41); MEAN CELL VOLUME 86.5 fL CALC (80.0-100.0); MEAN CORPUSCULAR HGB 27.3 pG CALC (26.0-32.0); MEAN CORPUSCULAR HGB CONC 31.6 g/dL CAL (32.0-36.0); MONO% 6.6 % (2-13); NEUT# 9.37 thou/uL (2.00-7.15); NEUT% 71.3 % (42-76); RED BLOOD COUNT 4.8 mill/uL (4.20-5.60); RED CELL DISTRI WIDTH 15.7 % (11.5-15.5)
[2023-07-15 11:50] LABS: ALBUMIN 3.8 g/dL (3.2-5.0); ALKALINE PHOSPHATASE 78 u/l (38-126); ANION GAP 12 (6-22 (CALC)); BILIRUBIN, TOTAL 0.7 mg/dL (0.02-1.3); BUN 13 mg/dL (7-17); BUN/CREATININE RATIO 12 (12-20 (CALC)); CARBON DIOXIDE 22 mmol/l (22-30); CHLORIDE 108 mmol/l (95-108); CREATININE 1.1 mg/dL (0.5-1.0); GFR FOR AFR.AMER. > 60 ML/MIN (>=60 (CALC)); GFR OTHER RACES 55 ML/MIN (>=60 (CALC)); SGOT/AST 33 u/l (14-36); SODIUM 138 mmol/l (137-146); TOTAL PROTEIN 7.7 g/dL (6.3-8.2)
[2023-07-15 12:24] LABS: POTASSIUM 3.8 mmol/l (3.5-5.1)
[2023-07-16 06:01] LABS: BASO% 0.5 % (0-3); EOS% 2.1 % (0-8); HEMATOCRIT 38.5 % (37.0-47.0); HEMOGLOBIN 12.2 g/dl (12.0-16.0); IMMATURE GRANULOCYTES 0.4 % (0.0-5.0); LYMPH% 20.6 % (15-41); MEAN CELL VOLUME 85.6 fL CALC (80.0-100.0); MEAN CORPUSCULAR HGB 27.1 pG CALC (26.0-32.0); MEAN CORPUSCULAR HGB CONC 31.7 g/dL CAL (32.0-36.0); MONO% 7.1 % (2-13); NEUT# 7.44 thou/uL (2.00-7.15); NEUT% 69.3 % (42-76); RED BLOOD COUNT 4.5 mill/uL (4.20-5.60); RED CELL DISTRI WIDTH 15.9 % (11.5-15.5)
[2023-07-16 06:13] LABS: ALBUMIN 3.1 g/dL (3.2-5.0); ALKALINE PHOSPHATASE 68 u/l (38-126); ANION GAP 13 (6-22 (CALC)); BILIRUBIN, TOTAL 0.8 mg/dL (0.02-1.3); BUN 9 mg/dL (7-17); BUN/CREATININE RATIO 11 (12-20 (CALC)); CALCULATED LDLCHOLESTEROL 48 mg/dL (62-129 (CALC)); CARBON DIOXIDE 19 mmol/l (22-30); CHLORIDE 108 mmol/l (95-108); CHOLESTEROL HDL RATIO 3.2 (<4.4 (CALC)); CREATININE 0.8 mg/dL (0.5-1.0); GFR FOR AFR.AMER. > 60 ML/MIN (>=60 (CALC)); GFR OTHER RACES > 60 ML/MIN (>=60 (CALC)); HDL CHOLESTEROL 36 mg/dL (39.0-59.0); MAGNESIUM 2.1 mg/dL (1.6-2.3); POTASSIUM 3.9 mmol/l (3.5-5.1); SGOT/AST 18 u/l (14-36); SODIUM 135 mmol/l (137-146); TOTAL CHOLESTEROL 117 mg/dl (0-199); TOTAL PROTEIN 6.4 g/dL (6.3-8.2); TOTAL TRIGLYCERIDES 166 mg/dl (0-149); VLDL CHOLESTROL 33 mg/dl (1-41 (CALC))
[2023-07-16 07:14] VITALS: BP 92/61
[2023-07-16 11:17] VITALS: BP 101/61
== END 2023-07-16 13:48 | disposition home or self-care (01) ==
LOC: ED 10:35 → ED-I 12:49 → ED 15:41 → MS2 15:42
PROVIDERS: Emergency Medicine; ADMIT Student in an Organized Health Care Education/Training Program; ATTEND Student in an Organized Health Care Education/Training Program
DX: R07.9 Chest pain, unspecified (principal); K50.90 Crohn's disease, unspecified, without complications; L93.0 Discoid lupus erythematosus; E03.9 Hypothyroidism, unspecified; F41.9 Anxiety disorder, unspecified; F31.9 Bipolar disorder, unspecified; F17.210 Nicotine dependence, cigarettes, uncomplicated
CPT/HCPCS: J1650; Q9967

== ENCOUNTER 2024-03-02 11:57 | Observation (INO) | payer MEDICARE ==
[~2024-03-02] VITALS: Ht 152.4 cm; Wt 69.2 kg
[2024-03-02] VITALS (27 sets, daily range): BP systolic 77–111; BP diastolic 41–92
[2024-03-02] MEDS ORDERED: KETOROLAC TROMETHAMINE 30 MG/ML SDV IV ONE (12:45)
[2024-03-02] MEDS ORDERED: ONDANSETRON HCl 4 MG/2 ML SDV IV ONE (12:45)
[2024-03-02] MEDS ORDERED: SODIUM CHLORIDE 0.9% 1,000 ML IV ONE ×2 (12:45→14:23)
[2024-03-02 13:34] LABS: BASO% 0.5 % (0-3); EOS% 1.8 % (0-8); HEMATOCRIT 43.1 % (37.0-47.0); HEMOGLOBIN 14.5 g/dl (12.0-16.0); IMMATURE GRANULOCYTES 0.4 % (0.0-5.0); LYMPH% 20.1 % (15-41); MEAN CELL VOLUME 83.7 fL CALC (80.0-100.0); MEAN CORPUSCULAR HGB 28.2 pG CALC (26.0-32.0); MEAN CORPUSCULAR HGB CONC 33.6 g/dL CAL (32.0-36.0); MONO% 5.5 % (2-13); NEUT# 12.32 thou/uL (2.00-7.15); NEUT% 71.7 % (42-76); RED BLOOD COUNT 5.15 mill/uL (4.20-5.60); RED CELL DISTRI WIDTH 15.9 % (11.5-15.5)
[2024-03-02 13:38] LABS: ALBUMIN 3.8 g/dL (3.2-5.0); BILIRUBIN, TOTAL 0.9 mg/dL (0.02-1.3); CREATININE 1.6 mg/dL (0.5-1.0)
[2024-03-02 13:43] LABS: POTASSIUM 2.1 mmol/l (3.5-5.1)
[2024-03-02] MEDS ORDERED: POTASSIUM CHLORIDE 10MEQ 50 ML IV ONE ×2 (13:45)
[2024-03-02] MEDS ORDERED: POTASSIUM CHLORIDE 20 MEQ/TAB PO ONE (13:45)
[2024-03-02] MEDS ORDERED: POTASSIUM CHLORIDE 20MEQ 100 ML IV ONE (14:00)
[2024-03-02] MEDS ORDERED: DEXAMETHASONE SOD. PHOSPHATE 10 MG/ML VIAL IV ONE (16:20)
[2024-03-02 16:33] LABS: CREATININE 1.4 mg/dL (0.5-1.0)
[2024-03-02 16:38] LABS: POTASSIUM 2.3 mmol/l (3.5-5.1)
[2024-03-02 17:21] LABS: URINE BILIRUBIN - DIPSTICK Negative (NEGATIVE); URINE BLOOD DIPSTICK Trace-intact (NEGATIVE); URINE GLUCOSE - DIPSTICK Negative (NEGATIVE); URINE KETONE Negative (NEGATIVE); URINE LEUK ESTERASE Negative (NEGATIVE); URINE NITRITE - DIPSTICK Negative (Negative); URINE PROTEIN - DIPSTICK 100 mg/dL (NEG-TRACE); URINE UROBILINOGEN - DIPSTICK 0.2 E.U./dL (0.2)
[2024-03-02 17:35] LABS: URINE COLOR Yellow; URINE RBC 0-2 RBC/hpf (0-5)
[2024-03-02 17:36] LABS: URINE SQUAMOUS EPITHELIAL CELL FEW EPI/hpf (0-FEW)
[2024-03-02] MEDS ORDERED: MAGNESIUM HYDROXIDE 30 ML UDC PO PRN (18:05)
[2024-03-02] MEDS ORDERED: SODIUM CHLORIDE 0.9% 1,000 ML IV PRN (18:05)
[2024-03-02] MEDS ORDERED: ACETAMINOPHEN 325 MG/TAB PO PRN (18:05)
[2024-03-02] MEDS ORDERED: ONDANSETRON HCl 4 MG/2 ML SDV IV PRN (18:10)
[2024-03-02] MEDS ORDERED: D5NS W/KCL 20MEQ 1000ML 1,000 ML IV PRN ×2 (18:10→20:40)
[2024-03-02] MEDS ORDERED: methylPREDNISolone Sod Succ 40 MG/ML SDV IV SCH (21:00)
[2024-03-03] MEDS ORDERED: KETOROLAC TROMETHAMINE 15 MG/ML SDV IV SCH
[2024-03-03 04:13] VITALS: BP 87/48
[2024-03-03 05:55] VITALS: BP 88/51
[2024-03-03] MEDS ORDERED: LEVOTHYROXINE SODIUM 50 MCG/TAB PO SCH (06:00)
[2024-03-03 06:07] LABS: BASO% 0.1 % (0-3); EOS% 0.1 % (0-8); LYMPH% 9.6 % (15-41); MEAN CELL VOLUME 85.3 fL CALC (80.0-100.0); MEAN CORPUSCULAR HGB 28.6 pG CALC (26.0-32.0); MEAN CORPUSCULAR HGB CONC 33.5 g/dL CAL (32.0-36.0); MONO% 1.5 % (2-13); NEUT# 12.61 thou/uL (2.00-7.15); NEUT% 87.7 % (42-76); RED BLOOD COUNT 4.16 mill/uL (4.20-5.60); RED CELL DISTRI WIDTH 16.3 % (11.5-15.5)
[2024-03-03 06:20] LABS: HEMATOCRIT 35.5 % (37.0-47.0); HEMOGLOBIN 11.9 g/dl (12.0-16.0)
[2024-03-03 06:35] LABS: CREATININE 1.5 mg/dL (0.5-1.0); MAGNESIUM 2.1 mg/dL (1.6-2.3)
[2024-03-03 06:37] VITALS: BP 93/51
[2024-03-03 06:41] LABS: ALBUMIN 2.7 g/dL (3.2-5.0); BILIRUBIN, TOTAL 0.4 mg/dL (0.02-1.3); TOTAL PROTEIN 5.9 g/dL (6.3-8.2)
[2024-03-03 06:42] LABS: POTASSIUM 2.3 mmol/l (3.5-5.1)
[2024-03-03] MEDS ORDERED: POTASSIUM CHLORIDE 20MEQ 100 ML IV SCH (07:00)
[2024-03-03] MEDS ORDERED: POTASSIUM CHLORIDE 20 MEQ/TAB PO ONE (09:30)
[2024-03-03 10:30] VITALS: BP 99/57
[2024-03-03 11:59] LABS: CREATININE 1.4 mg/dL (0.5-1.0)
[2024-03-03] MEDS ORDERED: D5NS W/KCL 20MEQ 1000ML 1,000 ML IV PRN (12:00)
[2024-03-03 12:11] LABS: POTASSIUM 2.2 mmol/l (3.5-5.1)
[2024-03-03] MEDS ORDERED: METRONIDAZOLE500 MG PO (13:18)
[2024-03-03] MEDS ORDERED: CIPROFLOXACN500 MG PO (13:18)
[2024-03-03] MEDS ORDERED: PREDNISONE10 MG PO (13:20)
[2024-03-03] MEDS ORDERED: KLOR-CON M2020 MEQ PO (13:21)
[2024-03-03] MEDS ORDERED: POTASSIUM CHLORIDE 20 MEQ/TAB PO SCH (13:30)
== END 2024-03-03 15:45 | disposition home or self-care (01) ==
LOC: ED 11:57 → ED-I 13:07 → ED 13:07 → MS2 16:48
PROVIDERS: Family Medicine; Nurse Practitioner Family; ADMIT Internal Medicine; ATTEND Internal Medicine
DX: K50.00 Crohn's disease of small intestine without complications (principal); E87.6 Hypokalemia; N17.9 Acute kidney failure, unspecified; E86.0 Dehydration; E03.9 Hypothyroidism, unspecified; L93.0 Discoid lupus erythematosus; F41.9 Anxiety disorder, unspecified; F31.9 Bipolar disorder, unspecified; F17.200 Nicotine dependence, unspecified, uncomplicated; Z90.49 Acquired absence of other specified parts of digestive tract
CPT/HCPCS: Q9967

== ENCOUNTER 2024-06-30 21:36 | Emergency (ER) | payer MEDICARE ==
[~2024-06-30] VITALS: Ht 152.4 cm; Wt 66.0 kg
[2024-06-30 21:50] VITALS: BP 115/70
[2024-06-30] MEDS ORDERED: ISOVUE-300 (Iopamidol) 100 ML SDV IV ONE (22:00)
[2024-06-30] MEDS ORDERED: Pantoprazole Sodium 40 MG VIAL (Protonix) IV ONE (22:05)
[2024-06-30] MEDS ORDERED: DEXAMETHASONE SOD. PHOSPHATE 10 MG/ML VIAL IV ONE (22:05)
[2024-06-30 22:18] LABS: BASO% 0.4 % (0-3); EOS% 2.6 % (0-8); HEMATOCRIT 39.1 % (37.0-47.0); HEMOGLOBIN 12.3 g/dl (12.0-16.0); IMMATURE GRANULOCYTES 0.3 % (0.0-5.0); LYMPH% 24.1 % (15-41); MEAN CORPUSCULAR HGB 29.2 pG CALC (26.0-32.0); MEAN CORPUSCULAR HGB CONC 31.5 g/dL CAL (32.0-36.0); MONO% 5.9 % (2-13); NEUT# 9.32 thou/uL (2.00-7.15); NEUT% 66.7 % (42-76); RED BLOOD COUNT 4.21 mill/uL (4.20-5.60); RED CELL DISTRI WIDTH 15.5 % (11.5-15.5)
[2024-06-30 22:20] LABS: URINE BILIRUBIN - DIPSTICK Negative (NEGATIVE); URINE BLOOD DIPSTICK Negative (NEGATIVE); URINE GLUCOSE - DIPSTICK Negative (NEGATIVE); URINE KETONE Trace mg/dL (NEGATIVE); URINE LEUK ESTERASE Negative (NEGATIVE); URINE NITRITE - DIPSTICK Negative (Negative); URINE PROTEIN - DIPSTICK Trace mg/dL (NEG-TRACE); URINE SPECIFIC GRAVITY 1.025; URINE UROBILINOGEN - DIPSTICK 0.2 E.U./dL (0.2)
[2024-06-30 22:22] LABS: MEAN CELL VOLUME 92.9 fL CALC (80.0-100.0)
[2024-06-30 22:23] LABS: URINE COLOR Yellow
[2024-06-30 22:31] VITALS: BP 94/55
[2024-06-30 22:41] LABS: ALBUMIN 3.2 g/dL (3.2-5.0); BILIRUBIN, TOTAL 0.4 mg/dL (0.02-1.3); POTASSIUM 3.3 mmol/l (3.5-5.1); TOTAL PROTEIN 6.7 g/dL (6.3-8.2)
[2024-06-30 23:00] VITALS: BP 90/49
[2024-06-30 23:30] VITALS: BP 97/63
[2024-07-01 00:30] VITALS: BP 93/62
[2024-07-01] MEDS ORDERED: PROTONIX40 MG PO (02:17)
[2024-07-01] MEDS ORDERED: DECADRON4 MG PO (02:17)
[2024-07-01 02:38] VITALS: BP 101/61
[2024-07-01 02:39] VITALS: BP 101/61
== END 2024-07-01 02:39 | disposition home or self-care (01) ==
LOC: ED 21:36
PROVIDERS: Family Medicine
DX: K50.90 Crohn's disease, unspecified, without complications (principal); F32.A Depression, unspecified; F41.9 Anxiety disorder, unspecified; F17.200 Nicotine dependence, unspecified, uncomplicated
CPT/HCPCS: J1100; J2470; Q9967

== ENCOUNTER 2024-08-31 09:56 | Emergency (ER) | payer MEDICARE ==
[~2024-08-31] VITALS: Ht 152.4 cm; Wt 65.7 kg
[2024-08-31] VITALS (20 sets, daily range): BP systolic 95–110; BP diastolic 51–85
[~2024-08-31 09:56] MED LIST changes: +DECADRON4 MG PO; +PROTONIX40 MG PO
[2024-08-31] MEDS ORDERED: ONDANSETRON HCl 4 MG/2 ML SDV IV STA (10:23)
[2024-08-31] MEDS ORDERED: KETOROLAC TROMETHAMINE 30 MG/ML SDV IV STA (10:23)
[2024-08-31] MEDS ORDERED: MORPHINE SULFATE 4 MG/ML VIAL IV STA (10:23)
[2024-08-31] MEDS ORDERED: SODIUM CHLORIDE 0.9% 1,000 ML IV STA (10:23)
[2024-08-31 10:52] LABS: BASO% 0.4 % (0-3); EOS% 1.7 % (0-8); IMMATURE GRANULOCYTES 0.2 % (0.0-5.0); LYMPH% 17.9 % (15-41); MEAN CELL VOLUME 91.1 fL CALC (80.0-100.0); MEAN CORPUSCULAR HGB 28.4 pG CALC (26.0-32.0); MEAN CORPUSCULAR HGB CONC 31.2 g/dL CAL (32.0-36.0); MONO% 6.2 % (2-13); NEUT# 9.67 thou/uL (2.00-7.15); NEUT% 73.6 % (42-76); RED BLOOD COUNT 5.07 mill/uL (4.20-5.60); RED CELL DISTRI WIDTH 14.2 % (11.5-15.5)
[2024-08-31 10:55] LABS: URINE BLOOD DIPSTICK Negative (NEGATIVE); URINE GLUCOSE - DIPSTICK Negative (NEGATIVE); URINE KETONE Trace mg/dL (NEGATIVE); URINE LEUK ESTERASE Negative (NEGATIVE); URINE NITRITE - DIPSTICK Negative (Negative); URINE PH 5.5 (4.5-8.0); URINE PROTEIN - DIPSTICK 30 mg/dL (NEG-TRACE); URINE SPECIFIC GRAVITY >=1.030; URINE UROBILINOGEN - DIPSTICK 0.2 E.U./dL (0.2)
[2024-08-31 10:56] LABS: HEMATOCRIT 46.2 % (37.0-47.0); HEMOGLOBIN 14.4 g/dl (12.0-16.0)
[2024-08-31 10:56] LABS: URINE COLOR Dark yellow
[2024-08-31 11:03] LABS: URINE SQUAMOUS EPITHELIAL CELL MODERATE EPI/hpf (0-FEW); URINE WBC 0-2 WBC/hpf (0-5)
[2024-08-31 11:05] LABS: URINE BACTERIA FEW hpf; URINE MUCUS MODERATE hpf (NONE-FEW)
[2024-08-31 11:05] LABS: POTASSIUM 3.5 mmol/l (3.5-5.1)
[2024-08-31 11:07] LABS: ALBUMIN 4.2 g/dL (3.2-5.0); TOTAL PROTEIN 8.4 g/dL (6.3-8.2)
== END 2024-08-31 15:04 | disposition home or self-care (01) ==
LOC: ED 09:56
PROVIDERS: Emergency Medicine
DX: K50.90 Crohn's disease, unspecified, without complications (principal); F31.9 Bipolar disorder, unspecified; F32.A Depression, unspecified; F17.200 Nicotine dependence, unspecified, uncomplicated
CPT/HCPCS: J2405; Q9967